=== PATIENT | female | born 1950 | race Caucasian/White ===

== ENCOUNTER 2020-01-27 00:33 | Emergency (ER) | payer MEDICARE, SELFPAY ==
[2020-01-27 00:41] VITALS: BP 198/110; PULSE 91; RESP 16; TEMP 37.1; O2SAT 99; BMI 29.2
--- NOTE | 2020-01-27 00:50 | W.ED.ALLEREA ---
HPI - Allergic Reaction General: Chief complaint: Allergic Reaction Stated complaint: tongue swelling Time Seen by Provider: 01/27/20 00:47 Source: patient Mode of arrival: ambulatory Limitations: no limitations History of Present Illness: HPI narrative: Skye is a nice 69-year-old female who comes in with a complaint of tongue swelling. Patient stated it started tonight after she took her evening dose of insulin. Patient is on COLLINS inhibitor, lisinopril which she has been on for quite some time and takes it every morning. Patient denies any skin rashes, shortness of breath or hives. Patient is able to talk, swallow her own secretions and speak. She denies any swelling in the posterior part of her throat only to the anterior portion of her tongue at this time. Associated symptoms: Deny abdominal pain, dizziness, facial swelling, hoarseness, nausea, tongue swelling or vomiting Review of Systems Const: Denies: fever(s), chills, body aches, fatigue, malaise or diaphoresis Eyes: Denies: change in vision, blurry vision, photophobia, eye discomfort, eye discharge, eye redness or yellow eyes ENMT: Reports: other (Tongue swelling, see HPI); Denies: throat pain, odynophagia, hoarseness, swelling of lips/tongue, ear or mastoid pain, ear discharge, change in hearing or nasal discharge Card: Denies: chest pain, palpitations, irregular heart rhythm, edema, lightheadedness, syncope, pre-syncope, dyspnea on exertion or orthopnea Resp: Denies: dyspnea, productive cough, non-productive cough, wheezing, hemoptysis or chest congestion GI: Denies: abdominal pain, nausea, vomiting, hematemesis, coffee ground emesis, heartburn, diarrhea, constipation, GI cramping, hematochezia or melena : Denies: flank pain, dysuria, urinary frequency, urinary urgency or hematuria Musc: Denies: neck pain, back pain, extremity pain, extremity swelling, joint pain, joint swelling, joint redness, joint warmth or joint stiffness Skin/Breast: Denies: rash, pruritus, erythema, skin pain or skin tenderness Neuro: Denies: headache(s), numbness in extremities, weakness in extremities, sensory changes, lack of coordination, difficulty walking, dizziness, vertigo, confusion, Slurred speech present or seizure-like activity Jair/Lymph: Denies: easy bruising, easy bleeding, petechiae, purpura or enlarged lymph nodes All/Imm: Denies: urticaria, throat swelling, tongue swelling, facial swelling or acute wheezing PFSH ED PFSH: Medical History Diabetes Hypertension Physical Exam Const: COMMON NORMALS: no acute distress, patient oriented x3, no limitations and alert GENERAL APPEARANCE: cooperative HENMT: COMMON NORMALS: normocephalic, atraumatic, external ears normal, EAC's normal and Normal external nose present HEAD & SCALP: normal to inspection, normocephalic and atraumatic FACE & SINUS: normal facial exam and face symmetric NOSE: Normal external nose present and Normal nares present EXTERNAL EAR: Yes external ears normal EXTERNAL AUDITORY CANAL: EAC's normal MOUTH: Normal oral and palatal mucosa present, lip normal and other (Tongue with swelling but overall patient has Mallampati class II visualizat) Eye: COMMON NORMALS: Equal, round and reactive pupils present and conjunctivae normal GENERAL EYE: appearance normal, both eyes and all related structures ALIGNMENT: Yes alignment normal PERIORBITAL: periorbital findings normal EYELID: eyelids normal CONJUNCTIVA: Yes conjunctivae normal SCLERA: sclerae normal PUPIL: Yes Equal, round and reactive pupils present Neck/C-Spine: COMMON NORMALS: full ROM, no lymphadenopathy, supple, no meningeal signs and no JVD GENERAL: Yes normal visual inspection and Yes trachea midline Chest: COMMONS NORMALS: normal inspection of the chest and normal palpation of entire chest wall Resp: COMMON NORMALS: normal respiratory effort, No retractions, No use of accessory muscles and clear to auscultation bilaterally EFFORT & INSPECTION: Yes able to speak in complete sentences and Yes symmetric chest movement AUSCULTATION: clear to auscultation bilaterally, no crackles, no rales, no rhonchi and no wheezes Cardio: COMMON NORMALS: no JVD, regular rate, regular rhythm, S1 normal heart sound present and S2 normal heart sound present RATE: regular rate RHYTHM: regular rhythm HEART SOUNDS: S1 normal heart sound present, S2 normal heart sound present, no click, no gallops, no murmurs and no rubs GI: COMMON NORMALS: Soft to palpation and No hepatosplenomegaly present PALPATION: Yes Soft to palpation, No Tenderness to palpation present (GI), No Guarding due to palpation present (GI), No Rigid due to palpation, Yes No hepatosplenomegaly present, No Hernia present, No Palpable mass present and No Pulsatile mass present : COMMON NORMALS: Yes no CVA tenderness BLADDER/KIDNEY EXAM: Yes no CVA tenderness EXTERNAL FEMALE EXAM: No Hernia present Back/Pelvis: COMMON NORMALS: no CVA tenderness, thoracic and lumbar spine normal to inspection, no thoracic nor lumbar tenderness and thoraco-lumbar ROM normal Extremity: COMMON NORMALS: normal to inspection, full ROM, capillary refill normal, no joint enlargement, no clubbing, cyanosis or edema and no calf tenderness Neuro: COMMON NORMALS: patient oriented x3, CN's II-XII intact bilaterally, moves all extremities, no focal motor deficits and no sensory deficits noted SENSORIUM/ORIENTATION: Yes alert MENINGEAL SIGNS: Yes no meningeal signs SPEECH: speech normal Psych: COMMON NORMALS: mental status grossly normal, Normal thought process present, cooperative, normal affect, speech normal and activity/motor behavior normal SPEECH: Yes normal speech THOUGHT PROCESS: Normal thought process present Skin: COMMON NORMALS: no rashes or lesions noted, turgor normal, no jaundice, no petechiae and no mottling GENERAL SKIN EXAM: no rashes or lesions noted and turgor normal Course ED course: 1253 -this time the patient has a Mallampati class II exam to her throat. The swelling is located to the anterior portion of the tongue only. Patient can speak without difficulty and swallow her own secretions. She denies any difficulty swallowing or breathing. This is likely angioedema secondary to the lisinopril. I have informed her if she gets worse at all she needs to tell us but we will proceed with conservative therapy at this time of Benadryl, Pepcid and Solu-Medrol. If she gets worse at all we may have to proceed with prophylactic intubation to protect her airway. 0132 -patient reports feeling slightly better after her administration of medications. 0205 -patient reports continuing to feel slightly better. She feels no worse. Vital signs are stable. 0253 -patient feels improved. There is definite visual improvement with her tongue swelling. It is asymmetric at this time more on the left than right and overall improved. 0336 -patient feels as though her tongue swelling has completely resolved. On exam her tongue is symmetrical without any evidence of swelling. Vital Signs: Vital signs: Vital Signs Temperature 98.8 F 01/27/20 00:41 Pulse Rate 83 01/27/20 03:15 Respiratory Rate 14 01/27/20 03:15 Blood Pressure 169/102 01/27/20 04:22 Pulse Oximetry 98 01/27/20 04:22 MDM - Allergic Reaction MDM Narrative: Medical decision making narrative: 0425 -the patient symptoms have completely resolved. She would like to go home at this time. I have instructed her to stop her lisinopril and follow-up with her doctor in regards to a new blood pressure medication. I will put the patient on steroids for the next 5 days and Benadryl and Pepcid for the next 2 days. Patient agrees to return should her symptoms return at all but at this time she states she is completely resolved. Her exam appears normal at this time. Discharge Plan Discharge Patient Disposition: Home Clinical Impression: Angioedema Qualifiers: Encounter type: initial encounter Qualified Code(s): T78.3XXA - Angioneurotic edema, initial encounter Condition: Stable Prescriptions: New prednisone 10 mg tablets,dose pack See Rx Instructions .ROUTE .COMPLEX Qty: 21 RF: 0 Discharge Orders: Discharge Order (Routine); Ordered 01/27/20 Ordered By: Darlene Arroyo Referrals: Davin Santos [Primary Care Provider] - 1-3 days Discharge Diet: Usual diet Discharge Activity: Increase activity as tolerated Patient Instructions: Angioedema (ED) Activity Restrictions/Additional Instructions: Please return to the ER immediately for any of the signs or symptoms listed on your discharge instruction sheets, worsening/changing of your symptoms, you are not getting better as quickly as expected, or for ANY other cause or concerns. Take your medications as I have directed. Take Benadryl 25 to 50 mg every 6 hours for the next 2 days and Pepcid 40 mg every 12 hours for the next 2 days. Return to the ER if you feel as though your tongue begins to swell again or you have any shortness of breath, throat tightening or any other concerns. Coding Level of Care Code ED Quality System Manager for Michael Fwd Exam Comprehensive
[2020-01-27 00:51] VITALS: BP 184/131; PULSE 88; RESP 16; O2SAT 98
[2020-01-27] MEDS: famotidine 20 mg/2 mL INJ 40 MG IVP (01:13)
[2020-01-27] MEDS: diphenhydrAMINE 50 mg/mL SDV 1mL IVP (01:13)
[2020-01-27 01:37] VITALS: BP 160/91; O2SAT 99
[2020-01-27 03:15] VITALS: BP 153/87; PULSE 83; RESP 14; O2SAT 99
--- NOTE | 2020-01-27 03:21 | PC.NURSE ---
PATIENT GIVEN ICE CHIPS BY NURSE PER HCP APPROVAL.
[2020-01-27 04:22] VITALS: BP 169/102; O2SAT 98
[2020-01-27] MEDS: predniSONE 20 mg Tablet 60 MG PO (05:49)
[2020-01-27 05:58] VITALS: BP 178/99; PULSE 68; RESP 16; O2SAT 100
== END 2020-01-27 05:59 | disposition home or self-care (01) ==
PROVIDERS: Emergency Provider Emergency Medicine; PCP Family Medicine
DX: T78.3XXA Angioneurotic edema, initial encounter (principal); T46.4X5A Adverse effect of angiotensin-converting-enzyme inhibitors, initial encounter; I10 Essential (primary) hypertension; E11.9 Type 2 diabetes mellitus without complications; Z79.4 Long term (current) use of insulin; X58.XXXA Exposure to other specified factors, initial encounter
CPT/HCPCS: 12345; 96374; 96375; 99283; J1200; J2930; J3490; J7512

== ENCOUNTER 2020-09-10 00:48 | Emergency (ER) | payer MEDICARE, SELFPAY ==
[2020-09-10 00:59] VITALS: BP 161/88; PULSE 69; RESP 18; O2SAT 99; BMI 26.9
--- NOTE | 2020-09-10 01:11 | ED_ITS ---
HPI - Weakness General: Chief complaint: Nausea/Vomiting/Diarrhea Stated complaint: N/V,D,, weak Time Seen by Provider: 09/10/20 00:59 Source: patient Mode of arrival: ambulatory Limitations: no limitations History of Present Illness: HPI Narrative: 69-year-old female states she has had nausea and vomiting over the last day and is felt weak and felt drunk tonight. She is a diabetic and takes insulin. Her blood sugar in triage was 50. She states she has not been eating as much. She denies abdominal pain. Denies any fever. Denies any worsening or improving factors. Associated symptoms: Reports nausea and vomiting; Denies chest pain, chills, dysuria, easy bruising or fever(s) Review of Systems Const: Denies: fever(s), chills, body aches or change in appetite Eyes: Denies: blurry vision or eye discomfort ENMT: Denies: throat pain or dental pain Card: Denies: chest pain Resp: Denies: dyspnea GI: Reports: nausea and vomiting : Denies: dysuria Musc: Denies: neck pain or back pain Skin/Breast: Denies: rash Neuro: Reports: weakness in extremities Psych: Denies: depression Jair/Lymph: Denies: easy bruising All/Imm: Denies: urticaria PFSH ED PFSH: Medical History Diabetes Hypertension Physical Exam Const: COMMON NORMALS: no acute distress, patient oriented x3 and healthy appearing HENMT: COMMON NORMALS: normocephalic and atraumatic HEAD & SCALP: normocephalic and atraumatic Eye: COMMON NORMALS: Equal, round and reactive pupils present and EOMs intact bilaterally PUPIL: Yes Equal, round and reactive pupils present Neck/C-Spine: COMMON NORMALS: full ROM and supple Chest: COMMONS NORMALS: normal inspection of the chest and normal palpation of entire chest wall Resp: COMMON NORMALS: normal respiratory effort, No retractions, No use of accessory muscles and clear to auscultation bilaterally AUSCULTATION: clear to auscultation bilaterally Cardio: COMMON NORMALS: regular rate, regular rhythm and No murmurs present (Cardio) RATE: regular rate RHYTHM: regular rhythm GI: COMMON NORMALS: Normal to inspection, nondistended, normoactive bowel sounds present, Soft to palpation, non-tender and no masses PALPATION: Yes Soft to palpation Extremity: COMMON NORMALS: normal to inspection and full ROM Neuro: COMMON NORMALS: patient oriented x3, moves all extremities and no focal motor deficits Psych: COMMON NORMALS: mental status grossly normal, Normal thought process present and cooperative THOUGHT PROCESS: Normal thought process present Skin: COMMON NORMALS: no rashes or lesions noted and no wounds GENERAL SKIN EXAM: no rashes or lesions noted Course Vital Signs: Vital signs: Vital Signs Pulse Rate 72 09/10/20 03:14 Respiratory Rate 16 09/10/20 03:14 Blood Pressure 161/88 09/10/20 00:59 Pulse Oximetry 99 09/10/20 00:59 MDM - Weakness MDM Narrative: Medical decision making narrative: Patient presents here with weakness likely from hypoglycemia and an acute urinary tract infection. She feels much improved here after her D50. She has been able to tolerate p.o. here with no problems. We will prescribe her Zofran for home and Keflex. She is to follow-up with PCP and return if worsening. Lab Data: Labs: Lab Results 09/10/20 09/10/20 09/10/20 Range/Units 01:04 01:17 01:17 WBC 11.1 H (4.0-10.0) 10^3/ uL RBC 3.86 L (4.1-5.3) 10^6/u L Hgb 12.3 (11.5-15.3) g/dL Hct 35.8 L (37.0-47.0) % MCV 92.7 (81-99) fL MCH 31.9 (28.0-34.0) pg MCHC 34.4 (30.0-36.0) g/dL RDW 12.4 (12.1-15.1) % Plt Count 310 (130-400) 10^3/c mm MPV 10.6 H (7.4-10.4) fL Neut % (Auto) 83.0 % Lymph % (Auto) 8.3 % Sawyer % (Auto) 7.6 % Eos % (Auto) 0.2 % Baso % (Auto) 0.5 % Neut # (Auto) 9.22 H (1.8-7.7) 10^3/u L Lymph # (Auto) 0.9 (0.8-4.8) 10^3/u L Sawyer # (Auto) 0.8 (0.2-0.9) 10^3/u L Eos # (Auto) 0.0 (0.0-0.8) 10^3/u L Baso # (Auto) 0.1 (0.0-0.1) 10^3/u L Nucleated RBC % (a uto) 0 % Nucleated RBCs # 0.0 /100WBC Sodium 134 L (136-145) mmol/L Potassium 3.4 L (3.5-5.1) mmol/L Chloride 97 L (98-107) mmol/L Carbon Dioxide 22 (22-29) mmol/L Anion Gap 18.4 (5-19) BUN 18 (8-23) mg/dL Creatinine 1.4 H (0.5-0.9) mg/dL GFR Calculation 37.2 L (90-130) mL/min Glucose 49 L (65-115) mg/dL POC Glucose 52 L (70-110) mg/dL Calculated Osmolal ity 277 L (285-295) mOsm/k g Calcium 8.8 (8.5-10.5) mg/dL Total Bilirubin 0.3 (0.15-1.2) mg/dL AST 26 (0-32) U/L ALT 13 (0-33) U/L Alkaline Phosphata se 82 (35-105) IU/L Total Protein 7.5 (6.6-8.7) g/dL Albumin 3.9 (3.5-5.2) g/dL Globulin 3.6 (1.3-4.6) g/dL Lipase 41 (13-60) U/L Urine Color (Yellow) Urine Appearance (CLEAR) Urine pH (5-7) Ur Specific Gravit y (1.005-1.030) Urine Protein (Negative) Urine Glucose (UA) (Normal) Urine Ketones (Negative) Urine Blood (Negative) Urine Nitrate (Negative) Urine Bilirubin (Negative) Urine Urobilinogen (Negative) mg/dL Ur Leukocyte Alyson ase (Negative) Urine RBC (0-2) /hpf Urine WBC (0-5) /hpf Ur Squamous Epith Cells (0-5) /hpf Amorphous Sediment Urine Bacteria (NONE) /hpf 09/10/20 09/10/20 09/10/20 Range/Units 02:05 02:46 03:31 WBC (4.0-10.0) 10^3/ uL RBC (4.1-5.3) 10^6/u L Hgb (11.5-15.3) g/dL Hct (37.0-47.0) % MCV (81-99) fL MCH (28.0-34.0) pg MCHC (30.0-36.0) g/dL RDW (12.1-15.1) % Plt Count (130-400) 10^3/c mm MPV (7.4-10.4) fL Neut % (Auto) % Lymph % (Auto) % Sawyer % (Auto) % Eos % (Auto) % Baso % (Auto) % Neut # (Auto) (1.8-7.7) 10^3/u L Lymph # (Auto) (0.8-4.8) 10^3/u L Sawyer # (Auto) (0.2-0.9) 10^3/u L Eos # (Auto) (0.0-0.8) 10^3/u L Baso # (Auto) (0.0-0.1) 10^3/u L Nucleated RBC % (a uto) % Nucleated RBCs # /100WBC Sodium (136-145) mmol/L Potassium (3.5-5.1) mmol/L Chloride (98-107) mmol/L Carbon Dioxide (22-29) mmol/L Anion Gap (5-19) BUN (8-23) mg/dL Creatinine (0.5-0.9) mg/dL GFR Calculation (90-130) mL/min Glucose (65-115) mg/dL POC Glucose 172 H 153 H (70-110) mg/dL Calculated Osmolal ity (285-295) mOsm/k g Calcium (8.5-10.5) mg/dL Total Bilirubin (0.15-1.2) mg/dL AST (0-32) U/L ALT (0-33) U/L Alkaline Phosphata se (35-105) IU/L Total Protein (6.6-8.7) g/dL Albumin (3.5-5.2) g/dL Globulin (1.3-4.6) g/dL Lipase (13-60) U/L Urine Color Yellow (Yellow) Urine Appearance Clear (CLEAR) Urine pH 5 (5-7) Ur Specific Gravit y 1.005 (1.005-1.030) Urine Protein 1+ H (Negative) Urine Glucose (UA) 2+ (Normal) Urine Ketones Negative (Negative) Urine Blood 2+ H (Negative) Urine Nitrate Negative (Negative) Urine Bilirubin Neg (Negative) Urine Urobilinogen Norm (Negative) mg/dL Ur Leukocyte Alyson ase Negative (Negative) Urine RBC 0-4 H (0-2) /hpf Urine WBC 0-4 H (0-5) /hpf Ur Squamous Epith Cells 0-4 H (0-5) /hpf Amorphous Sediment Not Reportable Urine Bacteria 3+ H (NONE) /hpf Discharge Plan Discharge Patient Disposition: Home Clinical Impression: Hypoglycemia, Acute cystitis Condition: Stable Prescriptions: New cephalexin 500 mg capsule 500 mg PO TID 7 Days Qty: 21 RF: 0 ondansetron 4 mg tablet,disintegrating 4 mg PO Q6H PRN (Reason: nausea and vomiting) Qty: 14 RF: 0 No Action prednisone 10 mg tablets,dose pack See Rx Instructions .ROUTE .COMPLEX Qty: 21 RF: 0 Discharge Orders: Discharge ED (Routine); Ordered 09/10/20 Ordered By: Rei Card Referrals: Davin Santos [Primary Care Provider] - 1-3 days Discharge Diet: Advance as tolerated Discharge Activity: Resume usual activity Patient Instructions: Urinary Tract Infection in Women (ED), Diabetic Hypoglycemia (ED) Coding Level of Care Code ED Md Allergy Immunology for [place] Fwd Exam Comprehensive
[2020-09-10] MEDS: dextrose 50% syringe 50 mL IVP (01:17)
[2020-09-10] MEDS: ondansetron 2 mg/ML SDV 2 mL 4 MG IVP (01:18)
[2020-09-10 01:24] LABS: Glucose Point of Care 52 mg/dL (70-110)
[2020-09-10 01:29] LABS: Basophils # 0.1 10^3/uL (0.0-0.1); Basophils % 0.5 %; Eosinophils % 0.2 %; Hematocrit 35.8 % (37.0-47.0); Hemoglobin 12.3 g/dL (11.5-15.3); Lymphocytes # 0.9 10^3/uL (0.8-4.8); Lymphocytes % 8.3 %; Mean Corpuscular HGB Conc 34.4 g/dL (30.0-36.0); Mean Corpuscular Hemoglobin 31.9 pg (28.0-34.0); Mean Corpuscular Volume 92.7 fL (81-99); Mean Platelet Volume 10.6 fL (7.4-10.4); Monocytes # 0.8 10^3/uL (0.2-0.9); Monocytes % 7.6 %; Neutrophils # 9.22 10^3/uL (1.8-7.7); Nucleated Red Blood Cells % 0 %; Platelet Count 310 10^3/cmm (130-400); Red Blood Count 3.86 10^6/uL (4.1-5.3); Red Cell Distribution Width 12.4 % (12.1-15.1); White Blood Count 11.1 10^3/uL (4.0-10.0)
[2020-09-10 01:41] LABS: Alanine Aminotransferase 13 U/L (0-33); Albumin Level 3.9 g/dL (3.5-5.2); Alkaline Phosphatase 82 IU/L (35-105); Anion Gap 18.4 (5-19); Aspartate Amino Transferase 26 U/L (0-32); Blood Urea Nitrogen 18 mg/dL (8-23); Calcium 8.8 mg/dL (8.5-10.5); Carbon Dioxide 22 mmol/L (22-29); Chloride 97 mmol/L (98-107); Globulin 3.6 g/dL (1.3-4.6); Glomerular Filtration Rate 37.2 mL/min (90-130); Glucose 49 mg/dL (65-115); Lipase 41 U/L (13-60); Osmolality Calculated 277 mOsm/kg (285-295); Potassium 3.4 mmol/L (3.5-5.1); Sodium 134 mmol/L (136-145); Total Bilirubin 0.3 mg/dL (0.15-1.2); Total Protein 7.5 g/dL (6.6-8.7)
[2020-09-10 02:09] LABS: Glucose Point of Care 172 mg/dL (70-110)
[2020-09-10 03:12] LABS: Add Urine Culture? Yes; Add Urine Microscopic? YES; Bacteria Urine 3+ /hpf; Bilirubin Urine Neg (Negative); Blood Urine 2+ (Negative); Glucose Urine UA 2+ (Normal); Ketones Urine Negative (Negative); Leukocyte Esterase Urine Negative (Negative); Nitrate Urine Negative (Negative); Protein Urine 1+ (Negative); RBC Urine 0-4 /hpf (0-2); Specific Gravity, Urine 1.005 (1.005-1.030); Squamous Epithelial Cell Urine 0-4 /hpf (0-5); Urine Appearance Clear (CLEAR); Urine Color Yellow (Yellow); Urobilinogen Urine Norm (Negative); WBC Urine 0-4 /hpf (0-5); pH Urine 5 (5-7)
[2020-09-10 03:14] VITALS: PULSE 72; RESP 16
[2020-09-10 03:35] LABS: Glucose Point of Care 153 mg/dL (70-110)
[2020-09-10] MEDS: cephALEXin 500 mg Capsule PO (04:01)
[2020-09-10 04:09] VITALS: BP 150/74; PULSE 71; RESP 16; TEMP 36.5; O2SAT 97
== END 2020-09-10 04:11 | disposition home or self-care (01) ==
PROVIDERS: Emergency Provider Emergency Medicine; PCP Family Medicine
DX: N30.00 Acute cystitis without hematuria (principal); E11.649 Type 2 diabetes mellitus with hypoglycemia without coma; I10 Essential (primary) hypertension
CPT/HCPCS: 36416; 80053; 81001; 82962; 83690; 85025; 87077; 87086; 87186; 96374; 96375; 99284; J2405

== ENCOUNTER 2022-06-01 14:34 | Inpatient (IN) | payer MEDICAID, SELFPAY ==
[2022-06-01] VITALS (19 sets, daily range): BP systolic 110–163; BP diastolic 64–101; PULSE 65–108; RESP 17–28; TEMP 36.8; O2SAT 96–100; BMI 4161.8
--- NOTE | 2022-06-01 14:42 | ECG_ITS ---
[facility] Test Date: 2022-06-01 Pat Name: Skye Oreilly Department: Room: Gender: Female [employer]: : 1950 Requested By: Chi Leon Order Number: [id number] Reading MD: AISHA HERNANDEZ Measurements Intervals [place] Rate: 75 P: 32 IN: 145 QRS: 23 QRSD: 92 T: 121 QT: 387 QTc: 432 Interpretive Statements SINUS RHYTHM WITH OCCASIONAL VENTRICULAR PREMATURE COMPLEXES MARKED ST ELEVATION, CONSIDER INFERIOR INJURY [MARKED ST ELEVATION W/O NORMALLY INFLECTED T-WAVE IN II/aVF] ACUTE NV No previous ECG available for comparison Electronically Signed On 06-03-2022 23:39:19 CDT by AISHA HERNANDEZ [id number]
--- NOTE | 2022-06-01 14:52 | XACV_ITS ---
Exam Room: [place] [address] Ht: 152 cm Wt: 67 kg BSA: 1.71 m2 Gender: Female : 1950 Exam Priority: Routine Procedure(s): Procedure Description: Diagnostic procedure Procedure Description: PCI procedure Procedure Description: Drug Eluting Coronary Stent Procedure Description: PTCA Procedure Description: Miscellaneous Procedure Description: ACT Procedure Description: Coronary Angiography LILY, [place]; Diagnostic Cath Status: Emergency Diagnostic Findings * 1. Left main has luminal irregularity2. LAD has luminal irregularities with mid 50% stenosis, diagonal 1 has proximal 80 to 90% stenosis small caliber vessel with 3. Left circumflex has luminal irregularities it is nondominant vessel with4. RCA has 100% occlusion in the mid segment there is a DIANELYS 0 flow. PCI Status: Emergency PCI Indication: STEMI - Immediate PCI for STEMI Interventional Findings * PCI to mid RCA: Using run-through wire we were able to cross the lesion, lesion was predilated with 2.5 x 12 mm AB trek balloon followed by deployment of Argelia 3.0 x 30 mm drug-eluting stent it was then postdilated with 3.5 x 12 mm noncompliant balloon at high pressure. Excellent angiographic result with DIANELYS-3 flow was achieved.. Recommendations * Continue dual antiplatelet therapy for at least 1 yearLifestyle modificationContinue statinGuideline medical therapy for ST elevation [place]. Interventional RX Recommendation: PCI w/o planned CABG Diagnostic RX Recommendation: PCI w/o planned CABG Pressures Phase:Rest AO : 108 / 79 ( 94 ) @ 4:35:00 PM 119 / 71 ( 94 ) @ 4:41:00 PM 110 / 65 ( 80 ) @ 4:51:00 PM 122 / 73 ( 96 ) @ 4:53:00 PM 99 / 54 ( 73 ) @ 4:54:00 PM 74 / 47 ( 59 ) @ 4:55:00 PM 115 / 70 ( 92 ) @ 4:55:00 PM Clinical Evaluation EBL: 5mL-10mL Procedural Details Admit Source: Emergency department. Pre-Procedure Time Out. Identified patient by full name and date of as verbalized by the patient/guarantor. Does the consent match the physician's order: N/A Emergent; Informed Consent not obtained due to time critical life threat. Accurate & Complete Informed Consent: N/A Emergent; Informed Consent not obtained due to time critical life threat. Inpatient/Outpatient History & Physical on Chart: N/A Emergent; Informed Consent not obtained due to time critical life threat. If H&P is completed, is and addenduem needed: N/A Emergent; Informed Consent not obtained due to time critical life threat; If yes, is the addendum complete: N/A Emergent; Informed Consent not obtained due to time critical life threat. Visualize and Verify Site with Patient/Guarantor: N/A. Relevant Radiology Images available: N/A. Pre-op teaching completed and patient verbalized understanding. The risks, benefits, and alternatives of sedation and/or procedure were discussed by physician. The patient agrees to continue. Procedure started. [facility] Clinical Fraility Score: 3: Managing Well. Fulfillment Mail Clerk Indications: New Onset Angina. Chest Pain Symptom Assessment: Typical Angina Symptoms. Current diagnosis: STEMI. Correct patient, site and procedure confirmed by cath team. PERRLA. Strong, equal hand customer management specialist bilaterally. Lungs clear x 5 lobes. IV Site on Arrival: 18 gauge in the left anticubital. IV Fluids: 0.9% NaCl at KVO. 0 mL infused prior to woven label designer. Pre Procedural Pulses: right radial was 1+. Pre Procedural Pulses: bilateral dorsalis pedis was 1+. Oxygen started at 2liters/min via nasal canula. right groin was prepped with chloroprep then draped in the usual sterile fashion. right radial was prepped with chloroprep then draped in the usual sterile fashion. Physician notified. Baseline sample Acquired. HR: 88 BPM. Physician arrived. Physician scrubbed in. Immediate Pre-Procedure Time Out. Correct Patient: Yes; Correct Procedure: Yes; Correct Site: Yes; Correct Patient Position: Yes; Correct Supplies: Yes; Dried Flammable Prep: Yes; Blood Products Available: N/A;. Lidocaine 1% infiltrated to the right radial. Arterial access obtained. A 5 grenadian TIG catheter in over wire. Multiple views taken of left coronary artery. Catheter redirected to the RCA. Multiple views taken of right coronary artery. Catheter removed over the exchange wire. 6 grenadian JR 4 guide catheter was inserted over the wire. Runthrough guidewire was advanced through the guide catheter to lesion in the prox RCA. Balloon inserted to lesion in the mid RCA. Inflation number : 1 A AB TREK 2.50X12 RX BALLOON was prepped and advanced across the Mid RCA , then inflated to 14 BRIT for 0:11 seconds. Inflation number: 2 The AB TREK 2.50X12 RX BALLOON was reinflated across the Mid RCA, to 14 BRIT for 0:07 seconds. Results checked. Balloon out. Stent inserted to lesion in the mid RCA. Inflation Number : 3 A MDT R ARGELIA 3.0X30 TREE -Lot Number# [id number] Exp 07/23/24 was prepped and advanced across the Mid RCA. The stent was deployed at 14 BRIT for 0:30 seconds. Results checked. Stent balloon out over wire. Inflation number : 4 A MDT NC EUPHORA RX 3.94A87PM BALLOON was prepped and advanced across the Mid RCA , then inflated to 14 BRIT for 0:23 seconds. Inflation number: 5 The MDT NC EUPHORA RX [id number] BALLOON was reinflated across the Mid RCA, to 10 BRIT for 0:06 seconds. Balloon inserted to lesion in the mid RCA. Inflation number: 6 The MDT NC EUPHORA RX 3.05E99UG BALLOON was reinflated across the Mid RCA, to 12 BRIT for 0:05 seconds. Inflation number: 7 The MDT NC EUPHORA RX 3.30S18CA BALLOON was reinflated across the Mid RCA, to 18 BRIT for 0:24 seconds. Inflation number: 8 The MDT ABNER EUPHORA RX 3.58S16YL BALLOON was reinflated across the Mid RCA, to 12 BRIT for 0:11 seconds. Balloon out. Wire out. Results checked. Ap Pads applied to patient chest. ACT drawn. Results 226 seconds. Therapeutic limits - pre-heparin administration 90-150 seconds and monitoring heparin during a vascular procedure >250 seconds. Guide catheter out. A TR Band was successful obtaining hemostatsis at the Right Radial artery insertion site. Post Procedure: Pulses reassessed and unchanged. PERRLA. Strong, equal hand customer management specialist bilaterally. No VTE prophylaxis required. Medication's Wasted: Other = Versed 1 mg. Medication's Wasted: Nitro = 49.8 mg. Medication's Wasted: Heparin = 1000u. Medication's Wasted: Lidocaine 1% = 1 mL. Total IV fluids: 85 mL. PCI Indication: STEMI. Post-op diagnosis: STEMI, RCA Occlusion. Complications: none. Estimated blood loss: 5mL-10mL. Responsiveness - Normal response to verbal stimuli; alert and oriented, PERRLA. Airway - Unaffected, no intervention required; spontaneous ventilation. Circulation: W/N/L, pulses unchanged. Nausea/Vomiting: No. Procedure completed. Patient transferred by wheelchair to ICU. Vital chart was stopped. Access Site Site: Right Radial artery Sheath Size: 6 Fr Hemostasis Method: TR Band Hemostasis Success: Successful Procedure Medications Start: 3:28 PM Stop: 3:28 PM Medication: Versed Amount: 1 mg Route: I.V. Start: 3:29 PM Stop: 3:29 PM Medication: Fentanyl Amount: 25 mcg Route: I.V. Start: 3:30 PM Stop: 3:30 PM Medication: Nitrogylcerin Amount: 200 mcg Route: I.A. Start: 3:37 PM Stop: 3:37 PM Medication: Heparin Amount: 3000 units Route: I.V. Start: 3:42 PM Stop: 3:42 PM Medication: Aggrastat 12.5 mg/250 mL Amount: 34 ml Route: I.V. bolus Start: 3:42 PM Stop: 3:42 PM Medication: Aggrastat 12.5 mg/250 mL Amount: 12.2 ml/hr Route: I.V. bolus Start: 3:59 PM Stop: 3:59 PM Medication: Heparin Amount: 2000 units Route: I.V. I, the attending physician, have reviewed and verified all procedure medications. Yes, all medications given per verbal order Report Signatures Finalized by Pilo Nuñez MD on 06/04/2022 11:52 PM
--- NOTE | 2022-06-01 14:55 | ED_ITS ---
HPI - Chest Pain General: Chief Complaint: Chest Pain Stated Complaint: n/v/chest pain Time Seen by Provider: 06/01/22 14:54 History of Present Illness: Patient presents to the ER with complaints of nausea vomiting and chest pain. States that the chest pain started sometime this morning and the nausea vomiting started around 1:00. Patient states pain is a 10 out of 10. MD complaint: chest pain Pertinent past history: other (Insulin-dependent diabetes,) Onset (ago): day(s) (Sometime this morning) Prior episodes: No Onset: during rest Pain location: substernal Pain radiation: none Pain scale (0-10): 10 Quality: tightness, aching and heaviness Relieving factors: nothing Exacerbating factors: nothing Associated symptoms: Reports nausea and vomiting Treatment prior to arrival: none Review of Systems General: Reports: ROS unobtainable due to medical condition GI: Reports: nausea and vomiting [facility] PFSH: Medical History Diabetes Hypertension Physical Exam Const: COMMON NORMALS: patient oriented x3 and alert GENERAL APPEARANCE: in distress, anxious and ill appearing HENMT: COMMON NORMALS: normocephalic, atraumatic, hearing grossly normal bilaterally and moist oral mucous membranes HEAD & SCALP: normocephalic and atraumatic Neck/C-Spine: COMMON NORMALS: full ROM, no lymphadenopathy, supple, no JVD and Thyroid normal THYROID: Thyroid normal Chest: COMMONS NORMALS: normal inspection of the chest and normal palpation of entire chest wall Resp: COMMON NORMALS: normal respiratory effort, No retractions, No use of accessory muscles and clear to auscultation bilaterally AUSCULTATION: clear to auscultation bilaterally Cardio: COMMON NORMALS: no JVD, regular rate, regular rhythm, S1 normal heart sound present and S2 normal heart sound present RATE: regular rate RHYTHM: regular rhythm HEART SOUNDS: S1 normal heart sound present and S2 normal heart sound present GI: COMMON NORMALS: Normal to inspection, nondistended, normoactive bowel sounds present, Soft to palpation, non-tender, No hepatosplenomegaly present and no masses PALPATION: Yes Soft to palpation and Yes No hepatosplenomegaly present Extremity: COMMON NORMALS: normal to inspection Neuro: COMMON NORMALS: patient oriented x3, CN's II-XII intact bilaterally, moves all extremities, no focal motor deficits and no sensory deficits noted SENSORIUM/ORIENTATION: Yes alert Course Vital Signs: Vital signs: Vital Signs Pulse Rate 65 06/01/22 15:05 Respiratory Rate 28 H 06/01/22 15:05 Blood Pressure 160/97 06/01/22 15:05 Pulse Oximetry 98 06/01/22 15:05 Oxygen Delivery Me thod 06/01/22 15:05 MDM - Chest Pain Medical Decision Making Patient presents to the ER with complaints of substernal chest pain 10 out of 10 in obvious distress. EKG was obtained in triage which showed marked ST elevation in leads II and aVF. Code STEMI was called, Dr. Van was consulted, patient was taken to the Orthodontic Technician. Dr. Bridges was consulted and she excepted for admission Differential Diagnosis Likely acute myocardial infarction; Unlikely acute massive pulmonary embolism, acute respiratory failure, cardiac arrest or sudden cardiac Lab Data 06/01/22 14:50 06/01/22 14:50 Laboratory Results WBC 14.0 10^3/uL (4.0-10.0) H 06/01/22 14:50 RBC 3.88 10^6/uL (4.1-5.3) L 06/01/22 14:50 Hgb 12.2 g/dL (11.5-15.3) 06/01/22 14:50 Hct 37.2 % (37.0-47.0) 06/01/22 14:50 MCV 95.9 fl (81-99) 06/01/22 14:50 MCH 31.4 pg (28.0-34.0) 06/01/22 14:50 MCHC 32.8 g/dL (30.0-36.0) 06/01/22 14:50 RDW 12.3 % (12.1-15.1) 06/01/22 14:50 Plt Count 336 10^3/cmm (130-400) 06/01/22 14:50 MPV 11.3 fL (7.4-10.4) H 06/01/22 14:50 Neut % (Auto) 81.0 % 06/01/22 14:50 Lymph % (Auto) 11.3 % 06/01/22 14:50 [place] % (Auto) 5.9 % 06/01/22 14:50 Eos % (Auto) 1.0 % 06/01/22 14:50 Baso % (Auto) 0.4 % 06/01/22 14:50 Neut # (Auto) 11.30 10^3/uL (1.8-7.7) H 06/01/22 14:50 Lymph # (Auto) 1.6 10^3/uL (0.8-4.8) 06/01/22 14:50 [place] # (Auto) 0.8 10^3/uL (0.2-0.9) 06/01/22 14:50 Eos # (Auto) 0.1 10^3/uL (0.0-0.8) 06/01/22 14:50 Baso # (Auto) 0.1 10^3/uL (0.0-0.1) 06/01/22 14:50 Nucleated RBC % (auto) 0 % 06/01/22 14:50 Nucleated RBCs # 0.0 /100WBC 06/01/22 14:50 PT 12.90 SECONDS (12.1-14.9) 06/01/22 14:50 INR 0.94 (0.8-1.2) 06/01/22 14:50 Sodium 134 mmol/L (136-145) L 06/01/22 14:50 Potassium 4.0 mmol/L (3.5-5.1) 06/01/22 14:50 Chloride 99 mmol/L (98-107) 06/01/22 14:50 Carbon Dioxide 20 mmol/L (22-29) L 06/01/22 14:50 Anion Gap 19.0 (5-19) 06/01/22 14:50 BUN 24 mg/dL (8-23) H 06/01/22 14:50 Creatinine 1.8 mg/dL (0.5-0.9) H 06/01/22 14:50 GFR Calculation Not Reportable 06/01/22 14:50 Glucose 203 mg/dL (65-115) H 06/01/22 14:50 Calculated Osmolality 288 mOsm/kg (285-295) 06/01/22 14:50 Calcium 9.1 mg/dL (8.5-10.5) 06/01/22 14:50 Total Bilirubin 0.2 mg/dL (0.15-1.2) 06/01/22 14:50 AST 21 U/L (0-32) 06/01/22 14:50 ALT 15 U/L (0-33) 06/01/22 14:50 Alkaline Phosphatase 85 U/L (35-105) 06/01/22 14:50 Troponin T Baseline 14 ng/L (0-10) H 06/01/22 14:50 NT-Pro-B Natriuret Pep 289 pg/mL (0-125) H 06/01/22 14:50 Total Protein 7.8 g/dL (6.6-8.7) 06/01/22 14:50 Albumin 4.0 g/dL (3.5-5.2) 06/01/22 14:50 Globulin 3.8 g/dL (1.3-4.6) 06/01/22 14:50 EKG Data EKG 1: I personally reviewed and interpreted this EKG as follows: EKG interpretation date: 06/01/22 EKG interpretation time: 14:42 Prior EKG tracings: not available for review Ischemic changes: acute STEMI Interpretation: EKG showed sinus rhythm with occasional PVCs, marked ST elevation specifically in leads II and aVF, acute MA, ventricular rate of 75 bpm, DE interval of 145, QRS duration of 92, QTc of 415, Discharge Plan Discharge Patient Disposition: Placed in Observation Clinical Impression: ST elevation myocardial infarction (STEMI) Coding Level of Care Code ED Front End Ui Developer for Michael Alvarez
--- NOTE | 2022-06-01 14:57 | XRR_ITS ---
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 TECHNIQUE: Imaging protocol: Radiologic exam of the chest. Views: 1 view. COMPARISON: CR XR chest 2V* [id number] 06/04/2016 1:51 PM FINDINGS: Lungs: Unremarkable. No consolidation. Pleural spaces: Unremarkable. No pleural effusion. No pneumothorax. Heart/Mediastinum: Unremarkable. No cardiomegaly. Bones/joints: Unremarkable. XR/XR chest 1V portable [id number] IMPRESSION: No acute findings.
--- NOTE | 2022-06-01 14:57 | PC.NURSE ---
pt brought back to room from triage, STEMI called. pt reports midsternal chest pain that began at noon, pain radiating to bilateral arms. pt reports intermittent dyspnea.
[2022-06-01] MEDS: aspirin 81 mg Chew Tablet 324 MG PO (14:59)
[2022-06-01] MEDS: clopidogrel 300 mg Tablet 600 MG PO (14:59)
[2022-06-01] MEDS: heparin 5,000 unit/mL INJ 1 mL 4000 UNIT IVP (15:00)
[2022-06-01] MEDS: sodium chloride 0.9% 1,000 ML 999 ML IV (15:03)
[2022-06-01 15:08] LABS: Basophils # 0.1 10^3/uL (0.0-0.1); Basophils % 0.4 %; Eosinophils # 0.1 10^3/uL (0.0-0.8); Hematocrit 37.2 % (37.0-47.0); Hemoglobin 12.2 g/dL (11.5-15.3); Lymphocytes # 1.6 10^3/uL (0.8-4.8); Lymphocytes % 11.3 %; Mean Corpuscular HGB Conc 32.8 g/dL (30.0-36.0); Mean Corpuscular Hemoglobin 31.4 pg (28.0-34.0); Mean Corpuscular Volume 95.9 fl (81-99); Mean Platelet Volume 11.3 fL (7.4-10.4); Monocytes # 0.8 10^3/uL (0.2-0.9); Monocytes % 5.9 %; Nucleated Red Blood Cells % 0 %; Platelet Count 336 10^3/cmm (130-400); Red Blood Count 3.88 10^6/uL (4.1-5.3); Red Cell Distribution Width 12.3 % (12.1-15.1)
[2022-06-01 15:11] LABS: INR 0.94 (0.8-1.2)
[2022-06-01 15:19] LABS: Troponin(5th) Baseline 14 ng/L (0-10)
[2022-06-01 15:27] LABS: Alanine Aminotransferase 15 U/L (0-33); Alkaline Phosphatase 85 U/L (35-105); Aspartate Amino Transferase 21 U/L (0-32); Blood Urea Nitrogen 24 mg/dL (8-23); Calcium 9.1 mg/dL (8.5-10.5); Carbon Dioxide 20 mmol/L (22-29); Chloride 99 mmol/L (98-107); Globulin 3.8 g/dL (1.3-4.6); Glucose 203 mg/dL (65-115); NT Pro B Type Natriuretic Pept 289 pg/mL (0-125); Osmolality Calculated 288 mOsm/kg (285-295); Sodium 134 mmol/L (136-145); Total Bilirubin 0.2 mg/dL (0.15-1.2); Total Protein 7.8 g/dL (6.6-8.7)
--- NOTE | 2022-06-01 15:41 | USCV_ITS ---
Denilson Skye Age: 71 Gender: F : 1950 Exam Date: 06/01/2022 17:19 Ordering Phys: Geneva Bridges MD Technologist: Jo Merritt Exam Location: [facility] Indication: POST STENT PLACEMENT POST STEMI BP: 163 / 91 HR: 76 Rhythm: Sinus Technical Quality: Adequate MEASUREMENTS (Male / Female) Normal Values 2D ECHO LV Diastolic Diameter PLAX 3.7 cm 4.2 - 5.9 / 3.9 - 5.3 cm LV Systolic Diameter PLAX 2.4 cm LV Chamber Size 3.0 cm IVS Diastolic Thickness 0.8 cm 0.6 - 1.0 / 0.6 - 0.9 cm IVS Systolic Thickness 0.9 cm LVPW Diastolic Thickness 1.0 cm 0.6 - 1.0 / 0.6 - 0.9 cm LVPW Systolic Thickness 1.4 cm RV Chamber Size 2.0 cm LVOT Diameter 2.1 cm LV Ejection Fraction 2D Teich 64.1 % LA Diameter 3.5 cm LA Width 3.2 cm LA Height 3.4 cm RA Width 2.8 cm RA Height 3.2 cm Aorta at Sinotubular Diameter 1.8 cm IVC Diameter 1.5 cm M-MODE Aortic Annulus Diameter 2.9 cm LA Ao Ratio MM 1.4 MV E Point Septal Separation 0.7 cm DOPPLER AV Peak Velocity 107.0 cm/s LVOT Peak Velocity 75.0 cm/s AV Area Cont Eq vti 3.6 cm squared AV Area Cont Eq pk 2.4 cm squared MV Area PHT 6.7 cm squared Mitral E to A Ratio 0.7 MV E' Velocity 41.0 cm/s Mitral E to MV E' Ratio 9.7 Mitral E to LV E' Lateral Ratio 8.2 Mitral E to LV E' Septal Ratio 12.1 TR Peak Velocity 198.7 cm/s TR Peak Gradient 15.8 mmHg TR Mean Velocity 146.8 cm/s TR Mean Gradient 9.4 mmHg TR Velocity Time Integral 48.2 cm Right Atrial Pressure 3.0 mmHg Pulmonary Artery Systolic Pressu 18.8 mmHg RV Acceleration Time 0.2 s RV Ejection Time 0.5 s RV AcT/ET 0.4 FINDINGS Left Ventricle Normal left ventricular size, systolic function and wall thickness, with no regional wall motion abnormalities. Left ventricular ejection fraction is estimated at 60 %. Grade I/IV diastolic dysfunction (abnormal relaxation filling pattern), normal to mildly elevated filling pressures. Right Ventricle The right ventricle is normal in size and function. Right Atrium The right atrium is normal in size. Left Atrium The left atrium is normal in size. Mitral Valve Structurally normal mitral valve without significant stenosis or prolapse. There is moderate mitral regurgitation. Aortic Valve Structurally normal aortic valve without significant sclerosis or stenosis. There is no aortic regurgitation. Tricuspid Valve Structurally normal tricuspid valve without significant stenosis or regurgitation. Pulmonary artery systolic pressure is normal. Pulmonic Valve Structurally normal pulmonic valve without significant stenosis. There is no pulmonic regurgitation. Pericardium Normal pericardium without effusion. Aorta Normal ascending aorta dimension. IVC The inferior vena cava appears normal. CONCLUSIONS 1-Normal left ventricular size, systolic function and wall thickness, with no regional wall motion abnormalities. Left ventricular ejection fraction is estimated at 60 %. Grade I/IV diastolic dysfunction (abnormal relaxation filling pattern), normal to mildly elevated filling pressures. 2-Structurally normal mitral valve without significant stenosis or prolapse. There is moderate mitral regurgitation. 3-There is no pericardial effusion. 4-Right atrial pressure is around 5 mm of mercury. Pilo Nuñez MD (Electronically Signed) Final Date: 01 June 2022 19:56 S
--- NOTE | 2022-06-01 16:10 | P.CONIM_ITS ---
Providers/Reason For Consult Consulting Physician/Specialty*: Dr. Leon Reason for Consult*: ST elevation [place] Requesting Physician: Dr. Leon Attending Physician: Pilo Nuñez MD Primary Care Provider: Davin Santos History of Present Illness History of Present Illness Skye Oreilly is a 71 year old female past medical history significant for heart hypertension diabetes mellitus presented with chest pain of 1 hour duration. Patient denies any prior complaint of chest pain, for the last 1 hour it has been become more consistent, patient has been brought her to ER, she was noted to have subtle ST elevation in the inferior leads with reciprocal changes in the anterior and high lateral, she was immediately taken to the Electrical Maintenance Technician noted to have 100% occluded mid RCA treated with single drug-eluting stent postdilated with noncompliant balloon. She was also noted to have 90% small caliber and size diagonal branch thought to be managed medically which is an incidental finding. Medications/Allergies Home Medications Medication Instructions Recorded Confirmed Last Taken Type aspirin 81 mg chewable tablet 81 mg PO DAILY 06/01/22 06/01/22 06/01/22 History insulin glargine 100 unit/mL (3 16 unit SUBCUT BEDTIME 06/01/22 06/01/22 05/31/22 History mL) subcutaneous pen (Basaglar KwikPen U-100 Insulin) levothyroxine 75 mcg tablet 75 mcg PO DAILY 06/01/22 06/01/22 05/31/22 History tizanidine 2 mg tablet 2 mg PO BID PRN Pain 06/01/22 06/01/22 Unknown History Allergies Allergy/AdvReac Type Severity Reaction Status Date / Time codeine Allergy Bertram Verified 01/27/20 00:46 Lip/Tongue/Throat lisinopril Allergy EDGAR-Josephinell Verified 09/10/20 01:21 Lip/Tongue/Throat PFSH Acute PFSH: Medical History Diabetes Hypertension Vitals/I&O/Wt Last Vital Signs Pulse 65 06/01/22 15:05 Resp 28 H 06/01/22 15:05 BP 160/97 06/01/22 15:05 Pulse Ox 98 06/01/22 15:05 O2 Del Method 06/01/22 15:05 Weight last 48 hrs Weight 148 lb Physical Exam Narrative: Awake oriented but in moderate to severe distress No JVD cyanosis or icterus Heart regular S1-S2 Abdomen soft nontender nontender Lungs clear to auscultate bilaterally 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 Will add beta-keira over next 24 hours. Echocardiogram will be obtained to assess LV function. (2) Diabetes: Sliding scale insulin (3) Hypertension: Currently stable and under control Consult Attestations Medical Necessity Statement: Patient require continuation hospitalization for above defined care Coding Level of Care Code Acute Code for g Fwd Diagnoses ST elevation myocardial infarction (STEMI) I21.3 Diabetes E11.9 Hypertension I10
--- NOTE | 2022-06-01 16:43 | PC.NURSE ---
Arrived from pathology laboratory director, Hemotoma to Right wrist TR band, pathology laboratory director staff addressed site and placed new TR band
--- NOTE | 2022-06-01 16:51 | PC.NURSE ---
Dr. Herzog gave v.o. to hold Aggrastat
[2022-06-01 17:50] LABS: Troponin 5 2HR 3042 ng/L (0-10); Troponin 5 2HR Delta 3028 ABS# (0-10)
--- NOTE | 2022-06-01 18:02 | ECG_ITS ---
[facility] Test Date: 2022-06-01 Pat Name: Skye Oreilly Department: Room: ICU04 Gender: Female Customer Success Intern: : 1950 Requested By: Chi Leon Order Number: [id number] Reading MD: AISHA HERNANDEZ Measurements Intervals [place] Rate: 78 P: 38 [place]: 151 QRS: -25 QRSD: 95 T: 89 QT: 393 QTc: 448 Interpretive Statements SINUS RHYTHM WITH MARKED SINUS ARRHYTHMIA INFERIOR MYOCARDIAL INFARCTION , OF INDETERMINATE AGE [40+ ms Q WAVE AND/OR ST/T ABNORMALITY IN II/aVF] Compared to ECG 06/01/2022 14:42:59 Ventricular premature complex(es) no longer present ST (T wave) deviation no longer present Myocardial infarct finding still present Electronically Signed On 06-03-2022 23:45:05 CDT by AISHA HERNANDEZ [id number]
--- NOTE | 2022-06-01 18:35 | PM.HP ---
Providers/Chief Complaint Admitting Physician: Geneva Bridges MD Primary Care Provider: Davin Santos Chief Complaint: n/v/chest pain History of Present Illness Skye Oreilly is a 71 year old female who presents today with chief complaint of chest pain shortness of breath, nausea, vomiting and diaphoresis which started around noon. In the ER STEMI was called, she went to the Assistant Professor Of Biology received a stent to the RCA currently reviewed cath report, hospital service has been requested to admit her after her angioplasty. Patient is chest pain-free hemodynamically stable, she is in ICU for, getting echo. Doing well on room air. Creatinine 1.8, significant delta troponin chest x-ray unremarkable Patient describing her chest pain as heaviness, pressure-like sensation, associated with shortness of breath, nausea vomiting diaphoresis it lasted until she arrived in the ER and received medications. EKG with inferior lateral ST elevation Review of Systems Const: Denies: fever(s) Eyes: Denies: change in vision ENMT: Denies: throat pain Card: Reports: chest pain Resp: Denies: dyspnea GI: Denies: abdominal pain : Denies: flank pain Musc: Denies: neck pain Skin/Breast: Denies: rash Neuro: Denies: headache(s) Psych: Denies: anxiety Endo: Denies: polyuria Jair/Lymph: Denies: easy bruising All/Imm: Denies: urticaria Medications/Allergies Home Medications Medication Instructions Recorded Confirmed Last Taken Type aspirin 81 mg chewable tablet 81 mg PO DAILY 06/01/22 06/01/22 06/01/22 History insulin glargine 100 unit/mL (3 16 unit SUBCUT BEDTIME 06/01/22 06/01/22 05/31/22 History mL) subcutaneous pen (Basaglar KwikPen U-100 Insulin) levothyroxine 75 mcg tablet 75 mcg PO DAILY 06/01/22 06/01/22 05/31/22 History tizanidine 2 mg tablet 2 mg PO BID PRN Pain 06/01/22 06/01/22 Unknown History Allergies Allergy/AdvReac Type Severity Reaction Status Date / Time codeine Allergy SUYAPAY-Josephinell Verified 01/27/20 00:46 Lip/Tongue/Throat lisinopril Allergy ALGY-Swell Verified 09/10/20 01:21 Lip/Tongue/Throat PFSH Acute PFSH: Medical History Diabetes Hypertension Surgical History No pertinent past surgical history Family History (Updated 06/01/22 @ 18:44 by Pilo Liu MD) Denies family history of CAD (coronary artery disease) Social History (Updated 06/01/22 @ 18:44 by Pilo Liu MD) Smoking and tobacco status: never smoked Vitals/I&O/Wt Last Vital Signs Pulse 68 06/01/22 18:00 Resp 17 06/01/22 18:00 BP 136/101 06/01/22 18:00 Pulse Ox 97 06/01/22 18:00 O2 Del Method 06/01/22 17:53 Weight last 48 hrs Weight 67.132 kg Physical Exam Narrative: Euvolemic Chest pain-free S1, S2 Currently on room air Abdomen soft Hypertensive GCS 15 Nonfocal neuro exam Pleasant and cooperative Laying flat No acute distress Data 06/01/22 14:50 06/01/22 14:50 A&P Assessment and plan (1) ST elevation myocardial infarction (STEMI): (2) No pertinent past surgical history: (3) Diabetes: (4) Hypertension: Plan STEMI: Status post stent in RCA Start aspirin and Plavix for 1 year Echo to be followed Cardiology on board History of diabetes check A1c level Check lipid panel Hypertension optimize antihypertensive regimen Hypothyroid Check TSH level Continue levothyroxine 75 mics Cardiac diet DVT prophylaxis on board Full code Disposition: Patient most likely will be able to go home in next 48 hours Attestations Medical Necessity Statement*: More than [address] elevation myocardial infarction (STEMI) I21.3 No pertinent past surgical history Z78.9 Diabetes E11.9 Hypertension I10
[2022-06-01] MEDS: amlodipine 10 mg Tablet PO (19:48)
[2022-06-01] MEDS: atorvastatin 40 mg Tablet PO (20:21)
[2022-06-01] MEDS: metoprolol tartrate 25 mg Tablet PO (20:22)
[2022-06-01] MEDS: hyDRALAzine 25 mg Tablet PO (20:22)
[2022-06-01 20:24] LABS: Chol HDL Ratio 4.29 mg/dL (0.0-4.40); Cholesterol 270 mg/dL (0-200); HDL Cholesterol 63 mg/dL (60-100); LDL Cholesterol Calculated 158 mg/dL (50-129); LDL HDL Ratio 2.51 RATIO (0.00-3.22); Thyroid Stimulating Hormone 14.47 uIU/mL (0.27-4.20); Triglycerides 246 mg/dL (0-150)
[2022-06-01 20:27] LABS: Glucose Point of Care 198 mg/dL (70-110)
[2022-06-01 20:30] LABS: Estmated Average Glucose 174; Hemoglobin A1C 7.7 % (4.0-6.0)
--- NOTE | 2022-06-01 20:57 | ECG_ITS ---
[facility] Test Date: 2022-06-01 Pat Name: Skye Oreilly Department: Room: ICU04 Gender: Female Roughener: : 1950 Requested By: Chi Leon Order Number: [id number] Reading MD: AISHA HERNANDEZ Measurements Intervals Harvey Rate: 73 P: 35 DE: 140 QRS: -28 QRSD: 79 T: 36 QT: 378 QTc: 417 Interpretive Statements SINUS RHYTHM WITH MARKED SINUS ARRHYTHMIA POSSIBLE ANTERIOR MYOCARDIAL INFARCTION , PROBABLY OLD [30 ms Q WAVE IN V3/V4, OR R < 0.2 mV IN V4] Compared to ECG 06/01/2022 18:02:02 No significant changes Electronically Signed On 06-03-2022 23:45:01 CDT by AISHA HERNANDEZ [id number]
[2022-06-01 20:58] LABS: Troponin 5 6HR Delta 5644 ng/L (0-12)
[2022-06-01 20:59] LABS: Troponin 5 6HR 5658 ng/L (0-10)
--- NOTE | 2022-06-01 21:00 | PC.NURSE ---
Received critical Troponin of 5,658 and a Troponin 6 hour Delta of 5,644. Results not reported due to expected results from recent STEMI and stent.
[2022-06-01] MEDS: ondansetron 2 mg/ML SDV 2 mL 4 MG IVP (22:30)
[2022-06-02] VITALS (41 sets, daily range): BP systolic 85–131; BP diastolic 51–91; PULSE 53–87; RESP 13–28; TEMP 36.6–36.9; O2SAT 95–100; BMI 4133.6
[2022-06-02] MEDS: sodium chloride 0.9% 1,000 ML 75 ML IV (00:26)
[2022-06-02 03:36] LABS: Basophils % 0.2 %; Eosinophils % 0.1 %; Hemoglobin 10.3 g/dL (11.5-15.3); Lymphocytes # 1.2 10^3/uL (0.8-4.8); Lymphocytes % 12.5 %; Mean Corpuscular HGB Conc 31.2 g/dL (30.0-36.0); Mean Corpuscular Hemoglobin 31.4 pg (28.0-34.0); Mean Corpuscular Volume 100.6 fl (81-99); Mean Platelet Volume 11.8 fL (7.4-10.4); Monocytes # 0.6 10^3/uL (0.2-0.9); Monocytes % 6.1 %; Neutrophils # 7.52 10^3/uL (1.8-7.7); Neutrophils % 80.9 %; Nucleated Red Blood Cells % 0 %; Platelet Count 248 10^3/cmm (130-400); Red Blood Count 3.28 10^6/uL (4.1-5.3); Red Cell Distribution Width 12.4 % (12.1-15.1); White Blood Count 9.3 10^3/uL (4.0-10.0)
[2022-06-02 04:00] LABS: Alanine Aminotransferase 41 U/L (0-33); Albumin Level 3.3 g/dL (3.5-5.2); Alkaline Phosphatase 64 U/L (35-105); Anion Gap 18.8 (5-19); Aspartate Amino Transferase 189 U/L (0-32); Blood Urea Nitrogen 26 mg/dL (8-23); Calcium 8.2 mg/dL (8.5-10.5); Carbon Dioxide 17 mmol/L (22-29); Chloride 106 mmol/L (98-107); Globulin 2.8 g/dL (1.3-4.6); Glucose 196 mg/dL (65-115); Magnesium 1.8 mg/dL (1.7-2.3); Osmolality Calculated 294 mOsm/kg (285-295); Potassium 4.8 mmol/L (3.5-5.1); Sodium 137 mmol/L (136-145); Total Bilirubin 0.3 mg/dL (0.15-1.2); Total Protein 6.1 g/dL (6.6-8.7)
--- NOTE | 2022-06-02 07:07 | PM.PN ---
Subjective Subjective: 71yo F seen at bedside this AM s/p TREE of RCA by Dr. Nuñez on 06/01/22. Pt states she is feeling much improved this AM. no longer having any CP, palpitations of SOB. Overnight pt was able to sleep well. 2 urinations overnight; however volume not recorded. BP Soft overnight with 85/51, improved to 94/63 on AM evaluation. Denies CP, palpitations, SOB, cough, N/V/D/C, abd pain, ROCHE, vision changes, loss of sensation or strength in extremities Medications: Reviewed: Yes Vitals/I&O/Wt Last Vital Signs Temp 98.3 F 06/02/22 04:30 Pulse 67 06/02/22 06:00 Resp 21 H 06/02/22 06:00 BP 85/51 06/02/22 06:00 Pulse Ox 95 06/02/22 06:00 O2 Del Method 06/02/22 04:30 Weight last 48 hrs Weight 147 lb Weight 148 lb Physical Exam Narrative: Lines: IV General: AOx3, no acute distress, well developed, well nourished, appears stated age psych: appropriate mood and affect. good judgment and insight. No suicidal or homicidal ideation. Head: atraumatic, normocephalic, no mass/lesions Eyes: conjunctiva clear w/o exudate or hemorrhage. non-icteric, EOM intact, PERRLA. no signs of nystagmus Nose: nasal mucosa pink, septum midline Oropharynx: good dentition, pink moist mucosa, non-deviated tongue, no buccal nodules/lesions. no pharyngeal exudate Neck: FROM, no lymphadenopathy, no tracheal deviation, non tender, thyroid gland normal w/o mass. supple Chest: atraumatic, symmetrical CVD: RRR, normal S1 and S2, 2/6SEM LSB, no R/G. 2+ pulse x 4 extremities, no JVD, no carotid bruit. Lungs: clear lung sounds in all garcia, no rhonchi, wheezing, rales. Abdomen: NT, ND, soft, NABS. No hepatosplenomegaly, no mass. umbilicus midline w/o herniation : not done on todays examination Rectal: not done on todays examination Spine: no visible deformities, FROM, 5/5 strength, Extremities: FROM and 5/5 strength in BUE and BLE. no visible joint abnormalities on active and passive ROM. Neuro: CNII-XII grossly intact. No atrophy, weakness, tremors or clonus.? 2+ DTR, no sensory abnormalities. Skin:? no rash, vesicles, lesions. Data 06/02/22 03:19 06/02/22 03:19 Echo: My impression: 1-Normal left ventricular size, systolic function and wall?thickness, with no regional wall motion abnormalities. Leftventricular ejection fraction is estimated at 60 %. Grade I/IV?diastolic dysfunction (abnormal relaxation filling pattern),normal to mildly elevated filling pressures. ?2-Structurally normal mitral valve without significant stenosis or prolapse.? There is moderate mitral regurgitation.? ?3-There is no pericardial effusion. ?4-Right atrial pressure is around 5 mm of mercury. Other data: Skye Oreilly is a 71 year old female who presents today with chief complaint of chest pain shortness of breath, nausea, vomiting and diaphoresis which started around noon.? 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 Patient is chest pain-free hemodynamically stable, she is in ICU for, getting echo.? Doing well on room air.? Creatinine 1.8, significant delta troponin chest x-ray unremarkable Patient describing her chest pain as heaviness, pressure-like sensation, associated with shortness of breath, nausea vomiting diaphoresis it lasted until she arrived in the ER and received medications.? EKG with inferior lateral ST elevation A&P Assessment and plan (1) ST elevation myocardial infarction (STEMI): s/p DEL of RCA by Dr. Nuñez on 06/01/22 medical management for diagonal branch ASA, plavix SCD's will transition to eliquis today Dr. Nuñez consulted (2) Diabetes: LDSSI will check A1c this AM (3) Hypertension: Norvasc 10mg, Lopressor 25mg BID, Hydralazine 25mg TID will give Lopressor 25mg BID. cardioprotective HOLD hydralazine and norvasc. likely to discontinue if BP remains low (4) DULCE (acute kidney injury): Cr increasing from 1.4 on admit to 1.9 this AM concern for contrast induced nephropathy ontop of baseline CKD have increased NS to 100ml, encouraged PO intake BMP in Am (5) Hypothyroidism: elevated TSH, Synthroid increased from 75 to 88mcg (6) Hyperlipidemia associated with type 2 diabetes mellitus: lipitor 40mg (7) Hypotension: increased NS to 100ml, encourged PO intake continue BB for cardiac protection. Plan A/ STEMI: Status post stent in RCA CAD DULCE (Cr. 1.9) - concern for contrast induced nephropathy vs hypotension? Hypotension Hypothyroidism Hyperlipidemia Hyperglycemia p/ Lines: IV NS 100ml/hr ASA, plavix x 1yr 2/2 stent placement continue anti-HTN medications for now. recheck BP later this AM. Hold AM hydralazine if BP still <100/60 likely to discontinue hydralazine and norvasc. Synthroid increased from 75 to 88mcg advance diet: cardiac diet DVT prophylaxic with SCD's. will transition to eliquis FULL CODE pending labs: A1c pending imaging: ECHO Disposition: Patient most likely will be able to go home in next 24 hours Attestations Medical Necessity Statement*: Pt needs to remain hospitalized for s/p stent placement, hypotension and DULCE Coding Level of Care Code [address] myocardial infarction (STEMI) I21.3 Diabetes E11.9 Hypertension I10 DULCE (acute kidney injury) N17.9 Hypothyroidism E03.9 Hyperlipidemia associated with type 2 diabetes mellitus E11.69; E78.5 Hypotension I95.9
[2022-06-02 07:54] LABS: Glucose Point of Care 169 mg/dL (70-110)
[2022-06-02 08:38] LABS: Estmated Average Glucose 169; Hemoglobin A1C 7.5 % (4.0-6.0)
[2022-06-02] MEDS: insulin lispro 100 unit/1 mL SUBCUT ×2 (09:15→11:54)
[2022-06-02] MEDS: pantoprazole 40 mg SDV IVP (09:48)
[2022-06-02] MEDS: clopidogrel 75 mg Tablet PO (09:49)
[2022-06-02] MEDS: aspirin 81 mg Chew Tablet PO (09:49)
[2022-06-02] MEDS: metoprolol tartrate 25 mg Tablet PO ×2 (09:49→20:56)
--- NOTE | 2022-06-02 09:52 | PC.NURSE ---
Part of Am meds am. PEr Dr Nuñez he is going to adjust her meds. Heldp off on hydralzine, amlodipine due to possible med changes and her BP. Levothyroxine held for med change.
--- NOTE | 2022-06-02 10:53 | PM.PN ---
Subjective Subjective: Denies any complaint. 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 Continue medical management including aspirin and statin add beta-keira continue Plavix. Will titrate medication patient will be staying 1 more night for optimization of medications post STEMI, echocardiogram showed normal ejection fraction 60% (2) CKD (chronic kidney disease) stage 4, GFR 15-29 ml/min: Patient has underlying chronic kidney disease. Remains stable creatinine. Will discontinue IV fluid (3) Hyperlipidemia associated with type 2 diabetes mellitus: Continue statin. Attestations Medical Necessity Statement*: Patient require continuation hospitalization for above defined care Coding Level of Care Code Acute Code for [facility] Diagnoses ST elevation myocardial infarction (STEMI) I21.3 CKD (chronic kidney disease) stage 4, GFR 15-29 ml/min N18.4 Hyperlipidemia associated with type 2 diabetes mellitus E11.69; E78.5
[2022-06-02 11:05] LABS: Glucose Point of Care 153 mg/dL (70-110)
--- NOTE | 2022-06-02 12:30 | PC.NURSE ---
Dr Herzog informed of bradycardia of 55, lowest rate 49 after beta keira admin this admin. Also informed amlodipine and hydralazine held this am. Dr stated to discontinue those medications. Held Levothyroxie this am as he stated he was going to change meds and her TSH high. Per go ahead and give. Will wait at least an hour after lunch to admin.
[2022-06-02] MEDS: sodium chloride 0.9% 1,000 ML 100 ML IV (12:32)
[2022-06-02] MEDS: levothyroxine 88 mcg Tablet PO (14:25)
[2022-06-02 16:37] LABS: Glucose Point of Care 83 mg/dL (70-110)
--- NOTE | 2022-06-02 18:48 | PC.NURSE ---
Pt remians alert and oreinted. No complaints of chest pain, shortness of breath, etc. Pt remained in sinus rhythm, she was bradycardic after metoprolol PO admin this am. Her heart rate averaged 55 at that time she is now in normal sinus rhythm. IV fluids remain infusing at 100ml/hr due to her creatinine. SHe has picked at her meals today. She has had scant amount of urine today. She has been up to [facility] several times this shift with diarrhea.
[2022-06-02] MEDS: lactated ringers 1,000 ML 120 ML IV (19:46)
[2022-06-02 20:54] LABS: Glucose Point of Care 106 mg/dL (70-110)
[2022-06-02] MEDS: atorvastatin 40 mg Tablet PO (20:57)
--- NOTE | 2022-06-02 22:06 | PC.NURSE ---
Pt's blood sugar is noted to be 106 at this time. Pt refused the 16 units of Lantus at this time. Pt states she only takes 4 units at home if her blood sugar is 106. Dr. Valadez notified and approved an order for 4 units one time.
[2022-06-02] MEDS: insulin glargine 100 units/1 mL 4 UNIT SUBCUT (22:11)
[2022-06-02 23:50] LABS: Glucose Point of Care 196 mg/dL (70-110)
[2022-06-03] VITALS (19 sets, daily range): BP systolic 98–143; BP diastolic 54–86; PULSE 59–90; RESP 10–33; TEMP 36.7–36.9; O2SAT 93–97; BMI 30.9
[2022-06-03] MEDS: lactated ringers 1,000 ML 120 ML IV (05:12)
[2022-06-03 07:57] LABS: Glucose Point of Care 77 mg/dL (70-110)
--- NOTE | 2022-06-03 08:26 | PM.PN ---
Subjective Subjective: Seen this AM at bedside Overnight BP improved, HR in 60's and UOP of 500 overnight Pt stats she is feeling much improved. Denying CP, palpitations, SOB, N/V. Continues to have some diarrhea but significantly improved. only 1 BM this AM. Vitals/I&O/Wt Last Vital Signs Temp 98.5 F 06/02/22 22:00 Pulse 90 06/03/22 07:45 Resp 17 06/03/22 06:00 BP 111/72 06/03/22 06:00 Pulse Ox 94 06/03/22 07:45 O2 Del Method 06/03/22 07:45 06/02/22 06/03/22 06/03/22 22:59 06:59 14:59 Intake Total 500 / 2000 1000 / 3000 Output Total 50 / 250 250 / 500 Balance 450 / 1750 750 / 2500 Weight last 48 hrs Weight 158 lb 11.725 oz Weight 147 lb Weight 148 lb Physical Exam Narrative: Lines: IV General: AOx3, no acute distress, well developed, well nourished, appears stated age psych: appropriate mood and affect. good judgment and insight. No suicidal or homicidal ideation. Head: atraumatic, normocephalic, no mass/lesions Eyes: conjunctiva clear w/o exudate or hemorrhage. non-icteric, EOM intact, PERRLA. no signs of nystagmus Nose: nasal mucosa pink, septum midline Oropharynx: good dentition, pink moist mucosa, non-deviated tongue, no buccal nodules/lesions. no pharyngeal exudate Neck: FROM, no lymphadenopathy, no tracheal deviation, non tender, thyroid gland normal w/o mass. supple Chest: atraumatic, symmetrical CVD: RRR, normal S1 and S2, 2/6SEM LSB, no R/G. 2+ pulse x 4 extremities, no JVD, no carotid bruit. Lungs: clear lung sounds in all garcia, no rhonchi, wheezing, rales. Abdomen: NT, ND, soft, NABS. No hepatosplenomegaly, no mass. umbilicus midline w/o herniation : not done on todays examination Rectal: not done on todays examination Spine: no visible deformities, FROM, 5/5 strength, Extremities: FROM and 5/5 strength in BUE and BLE. no visible joint abnormalities on active and passive ROM. Neuro: CNII-XII grossly intact. No atrophy, weakness, tremors or clonus.? 2+ DTR, no sensory abnormalities. Skin:? no rash, vesicles, lesions. Data 06/02/22 03:19 06/02/22 03:19 A&P Assessment and plan (1) ST elevation myocardial infarction (STEMI): s/p DEL of RCA by Dr. Nuñez on 06/01/22 medical management for diagonal branch ASA, plavix x 1yr at discharge SCD's. will consider transition to eliquis Dr. Nuñez consulted (2) Diabetes: Continue home Insulin Continue LDSSI A1c 7.5 (06/02/22) (3) Hypertension: HELD Norvasc 10mg, Hydralazine 25mg TID Will give Lopressor 12.5mg this AM 2/2 lower pulse rate in 60's and appropriate BP will continue at 12.5mg BID Likely d/c hydralazine and norvasc at time of discharge (4) DULCE (acute kidney injury): worsening Cr this AM. went form 1.9 to 2.3 Contrast induced nephropathy vs IVVD restart IVF, encouraged PO intake (5) Hypothyroidism: Synthroid increased from 75 to 88mcg (6) Hyperlipidemia associated with type 2 diabetes mellitus: lipitor 40mg (7) Hypotension: resolved stopped fluids Plan A/ STEMI: Status post stent in RCA CAD DULCE (Cr. 1.9) - concern for contrast induced nephropathy vs hypotension? Hypotension Hypothyroidism Hyperlipidemia Hyperglycemia p/ Lines: IV restart IVF ASA, plavix x 1yr 2/2 stent placement decrease lopressor from 25mg to 12.5mg BID. Will transition from SCD's to eliquis Synthroid increased from 75 to 88mcg advance diet: cardiac diet DVT prophylaxic with SCD's. will transition to eliquis FULL CODE Disposition: Patient most likely will be able to go home in next 24 hours Attestations Medical Necessity Statement*: hospitalized for contrast induced nephropathy. likely d/c in 24hrs Coding Level of Care Code [address] elevation myocardial infarction (STEMI) I21.3 Diabetes E11.9 Hypertension I10 DULCE (acute kidney injury) N17.9 Hypothyroidism E03.9 Hyperlipidemia associated with type 2 diabetes mellitus E11.69; E78.5 Hypotension I95.9
[2022-06-03 08:41] LABS: Basophils % 0.3 %; Eosinophils # 0.1 10^3/uL (0.0-0.8); Eosinophils % 0.7 %; Hematocrit 34.1 % (37.0-47.0); Hemoglobin 10.8 g/dL (11.5-15.3); Lymphocytes # 1.8 10^3/uL (0.8-4.8); Lymphocytes % 13.8 %; Mean Corpuscular HGB Conc 31.7 g/dL (30.0-36.0); Mean Corpuscular Hemoglobin 31.4 pg (28.0-34.0); Mean Corpuscular Volume 99.1 fl (81-99); Mean Platelet Volume 11.6 fL (7.4-10.4); Monocytes # 1.2 10^3/uL (0.2-0.9); Monocytes % 8.9 %; Neutrophils # 9.77 10^3/uL (1.8-7.7); Neutrophils % 76.1 %; Nucleated Red Blood Cells % 0 %; Platelet Count 280 10^3/cmm (130-400); Red Blood Count 3.44 10^6/uL (4.1-5.3); Red Cell Distribution Width 12.8 % (12.1-15.1); White Blood Count 12.9 10^3/uL (4.0-10.0)
[2022-06-03] MEDS: metoprolol tartrate 25 mg Tablet 12.5 MG PO ×2 (09:05→21:03)
[2022-06-03] MEDS: aspirin 81 mg Chew Tablet PO (09:05)
[2022-06-03] MEDS: levothyroxine 88 mcg Tablet PO (09:05)
[2022-06-03] MEDS: clopidogrel 75 mg Tablet PO (09:05)
[2022-06-03] MEDS: pantoprazole 40 mg SDV IVP (09:05)
[2022-06-03 09:13] LABS: Alanine Aminotransferase 46 U/L (0-33); Albumin Level 3.3 g/dL (3.5-5.2); Alkaline Phosphatase 71 U/L (35-105); Anion Gap 15.4 (5-19); Aspartate Amino Transferase 116 U/L (0-32); Blood Urea Nitrogen 32 mg/dL (8-23); Calcium 8.4 mg/dL (8.5-10.5); Carbon Dioxide 19 mmol/L (22-29); Chloride 104 mmol/L (98-107); Globulin 3.4 g/dL (1.3-4.6); Glucose 85 mg/dL (65-115); Osmolality Calculated 284 mOsm/kg (285-295); Potassium 4.4 mmol/L (3.5-5.1); Sodium 134 mmol/L (136-145); Total Bilirubin 0.3 mg/dL (0.15-1.2); Total Protein 6.7 g/dL (6.6-8.7)
--- NOTE | 2022-06-03 12:11 | PM.PN ---
Subjective Subjective: Patient creatinine has bumped up otherwise overall feeling fine denies any chest pain Medications: Reviewed: Yes Vitals/I&O/Wt Last Vital Signs Temp 98.5 F 06/02/22 22:00 Pulse 90 06/03/22 07:45 Resp 17 06/03/22 06:00 BP 111/72 06/03/22 06:00 Pulse Ox 94 06/03/22 07:45 O2 Del Method 06/03/22 07:45 06/02/22 06/03/22 06/03/22 22:59 06:59 14:59 Intake Total 500 / 2000 1000 / 3000 Output Total 50 / 250 250 / 500 Balance 450 / 1750 750 / 2500 Weight last 48 hrs Weight 158 lb 11.725 oz Weight 147 lb Weight 148 lb Physical Exam Narrative: Alert awake oriented x3, sitting in the chair No JVD cyanosis or icterus Heart regular S1-S2 Abdomen soft 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 Continue medical management including aspirin and statin add beta-keira continue Plavix. Will titrate medication patient will be staying 1 more night for optimization of medications post STEMI, echocardiogram showed normal ejection fraction 60% On today's visit dated 06/03/2022 patient is doing fine from cardiovascular perspective, will reduce metoprolol to 12.5 twice daily due to bradycardia. Continue aspirin statin beta-keira and clopidogrel (2) CKD (chronic kidney disease) stage 4, GFR 15-29 ml/min: Patient creatinine has worsened would like to rule out contrast-induced nephropathy will continue IV fluid 100 mL/h for next 24 hours recheck creatinine in the morning. (3) Hyperlipidemia associated with type 2 diabetes mellitus: Continue statin. Plan Patient will be staying in the hospital for 1 more day for IV fluid since creatinine has worsened after Left heart cath Attestations Medical Necessity Statement*: Patient require continuation hospitalization for above defined care Coding Level of Care Code Acute Code for [facility] Diagnoses ST elevation myocardial infarction (STEMI) I21.3 CKD (chronic kidney disease) stage 4, GFR 15-29 ml/min N18.4 Hyperlipidemia associated with type 2 diabetes mellitus E11.69; E78.5
--- NOTE | 2022-06-03 12:15 | PC.NURSE ---
Pt with IV infusing, out in waiting room with family.
[2022-06-03 12:36] LABS: Glucose Point of Care 140 mg/dL (70-110)
[2022-06-03 12:59] LABS: Basophils # 0.1 10^3/uL (0.0-0.1); Basophils % 0.4 %; Eosinophils # 0.1 10^3/uL (0.0-0.8); Eosinophils % 0.7 %; Hematocrit 35.2 % (37.0-47.0); Hemoglobin 11.4 g/dL (11.5-15.3); Lymphocytes # 2.2 10^3/uL (0.8-4.8); Lymphocytes % 14.4 %; Mean Corpuscular HGB Conc 32.4 g/dL (30.0-36.0); Mean Corpuscular Volume 98.9 fl (81-99); Mean Platelet Volume 11.2 fL (7.4-10.4); Monocytes # 1.2 10^3/uL (0.2-0.9); Monocytes % 7.9 %; Neutrophils # 11.52 10^3/uL (1.8-7.7); Neutrophils % 76.2 %; Nucleated Red Blood Cells % 0 %; Platelet Count 306 10^3/cmm (130-400); Red Blood Count 3.56 10^6/uL (4.1-5.3); Red Cell Distribution Width 12.6 % (12.1-15.1); White Blood Count 15.1 10^3/uL (4.0-10.0)
[2022-06-03] MEDS: sodium chloride 0.9% 1,000 ML 120 ML IV (14:11)
--- NOTE | 2022-06-03 14:18 | PC.NURSE ---
Report called to CSU. Report given to Irwin RN
--- NOTE | 2022-06-03 14:25 | PC.NURSE ---
Pt transferred to 104. All belongings transferred with pt. Further updated Irwin, RN
[2022-06-03 16:58] LABS: Glucose Point of Care 148 mg/dL (70-110)
[2022-06-03] MEDS: insulin lispro 100 unit/1 mL SUBCUT (17:11)
[2022-06-03] MEDS: atorvastatin 40 mg Tablet PO (21:03)
[2022-06-03 21:10] LABS: Glucose Point of Care 61 mg/dL (70-110)
[2022-06-03 21:40] LABS: Glucose Point of Care 77 mg/dL (70-110)
[2022-06-04] VITALS (7 sets, daily range): BP systolic 132–145; BP diastolic 72–97; PULSE 69–86; RESP 14–23; TEMP 36.5–36.8; O2SAT 90–99
[2022-06-04] MEDS: sodium chloride 0.9% 1,000 ML 120 ML IV (02:55)
[2022-06-04 04:43] LABS: Alanine Aminotransferase 35 U/L (0-33); Albumin Level 3.1 g/dL (3.5-5.2); Alkaline Phosphatase 68 U/L (35-105); Anion Gap 14.9 (5-19); Aspartate Amino Transferase 68 U/L (0-32); Blood Urea Nitrogen 30 mg/dL (8-23); Calcium 8.1 mg/dL (8.5-10.5); Carbon Dioxide 18 mmol/L (22-29); Chloride 104 mmol/L (98-107); Glucose 110 mg/dL (65-115); Osmolality Calculated 283 mOsm/kg (285-295); Potassium 3.9 mmol/L (3.5-5.1); Sodium 133 mmol/L (136-145); Total Bilirubin 0.3 mg/dL (0.15-1.2); Total Protein 6.1 g/dL (6.6-8.7)
[2022-06-04 06:34] LABS: Glucose Point of Care 99 mg/dL (70-110)
--- NOTE | 2022-06-04 07:28 | PM.PN ---
Subjective Subjective: Seen at bedside this AM States she is doing very well this morning and desires to go home. Denies CP, palpitations, SOB, N/V/D/C. Better PO intake in past 24hrs. making urine Medications: Reviewed: Yes Vitals/I&O/Wt Last Vital Signs Temp 98.1 F 06/04/22 07:06 Pulse 86 06/04/22 07:06 Resp 14 06/04/22 07:06 BP 136/86 06/04/22 07:06 Pulse Ox 90 06/04/22 07:06 O2 Del Method 06/04/22 07:06 06/03/22 06/04/22 06/04/22 22:59 06:59 14:59 Intake Total 1716 / 3516 480 / 3996 Output Total 2200 / 2600 1400 / 4000 Balance -484 / 916 -920 / -4 Weight last 48 hrs Weight 168 lb 14.4 oz Weight 158 lb 11.725 oz Physical Exam Narrative: Lines: IV General: AOx3, no acute distress, well developed, well nourished, appears stated age psych: appropriate mood and affect. good judgment and insight. No suicidal or homicidal ideation. Head: atraumatic, normocephalic, no mass/lesions Eyes: conjunctiva clear w/o exudate or hemorrhage. non-icteric, EOM intact, PERRLA. no signs of nystagmus Nose: nasal mucosa pink, septum midline Oropharynx: good dentition, pink moist mucosa, non-deviated tongue, no buccal nodules/lesions. no pharyngeal exudate Neck: FROM, no lymphadenopathy Chest: atraumatic, symmetrical CVD: RRR, normal S1 and S2, 2/6SEM LSB, no R/G. 2+ pulse x 4 extremities, no JVD, no carotid bruit. Lungs: clear lung sounds in all garcia, no rhonchi, wheezing, rales. Abdomen: NT, ND, soft, NABS. No hepatosplenomegaly, Spine: no visible deformities, FROM, 5/5 strength, Extremities: FROM and 5/5 strength in BUE and BLE. Neuro: CNII-XII grossly intact, no sensory abnormalities. Skin:? no rash, vesicles, lesions. Data 06/03/22 12:46 06/04/22 04:00 A&P Assessment and plan (1) ST elevation myocardial infarction (STEMI): s/p DEL of RCA by Dr. Nuñez on 06/01/22 medical management for diagonal branch ASA, plavix x 1yr at discharge transition to eliquis this AM Dr. Nuñez consulted (2) Diabetes: Continue home Insulin Continue LDSSI A1c 7.5 (06/02/22) (3) Hypertension: HELD Norvasc 10mg, Hydralazine 25mg TID Currently on Lopressor 12.5mg BID. tolerating well. HR and BP appropriate on this dosage. Likely d/c hydralazine and norvasc at time of discharge (4) DULCE (acute kidney injury): Cr showing improvement from 2.3 to 1.9. Contrast induced nephropathy vs IVVD continue IVF, encourage PO intake will re-eval CMP this PM. if further improvement will be clear to go home (5) Hypothyroidism: Synthroid increased from 75 to 88mcg (6) Hyperlipidemia associated with type 2 diabetes mellitus: lipitor 40mg (7) Hypotension: resolved Plan A/ STEMI: Status post stent in RCA CAD DULCE 2/2 contrast induced nephropathy. will re-eval this PM Hypotension Hypothyroidism Hyperlipidemia Hyperglycemia p/ Lines: IV restart IVF ASA, plavix x 1yr 2/2 stent placement decrease lopressor from 25mg to 12.5mg BID. Eliquis 10mg BID x 7 days then 5mg BID. will send home with starter pack Synthroid increased from 75 to 88mcg advance diet: cardiac diet FULL CODE Disposition: Patient most likely will be able to go home in next 24 hours Attestations Medical Necessity Statement*: Patient require continuation hospitalization for above defined care Coding Level of Care Code [address] elevation myocardial infarction (STEMI) I21.3 Diabetes E11.9 Hypertension I10 DULCE (acute kidney injury) N17.9 Hypothyroidism E03.9 Hyperlipidemia associated with type 2 diabetes mellitus E11.69; E78.5 Hypotension I95.9
[2022-06-04] MEDS: levothyroxine 88 mcg Tablet PO (09:17)
[2022-06-04] MEDS: aspirin 81 mg Chew Tablet PO (09:17)
[2022-06-04] MEDS: clopidogrel 75 mg Tablet PO (09:17)
[2022-06-04] MEDS: pantoprazole 40 mg SDV IVP (09:18)
[2022-06-04] MEDS: metoprolol tartrate 25 mg Tablet 12.5 MG PO (09:21)
[2022-06-04] MEDS: apixaban 5 mg Tablet 10 MG PO (09:23)
--- NOTE | 2022-06-04 11:41 | P.PN_ITS ---
Subjective Subjective: No overnight event. Creatinine has slightly improved Medications: Reviewed: Yes Vitals/I&O/Wt Last Vital Signs Temp 98.2 F 06/04/22 11:08 Pulse 82 06/04/22 11:08 Resp 18 06/04/22 11:08 BP 142/97 06/04/22 11:08 Pulse Ox 99 06/04/22 11:08 O2 Del Method 06/04/22 11:08 06/03/22 06/04/22 06/04/22 22:59 06:59 14:59 Intake Total 1716 / 3516 480 / 3996 1120 / 1120 Output Total 2200 / 2600 1400 / 4000 400 / 400 Balance -484 / 916 -920 / -4 720 / 720 Weight last 48 hrs Weight 168 lb 14.4 oz Weight 158 lb 11.725 oz Physical Exam Narrative: Alert awake oriented x3, right wrist bruising has improved No JVD cyanosis or icterus Heart regular S1-S2 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 Continue medical management including aspirin and statin add beta-keira continue Plavix. Will titrate medication patient will be staying 1 more night for optimization of medications post STEMI, echocardiogram showed normal ejection fraction 60% On today's visit dated 06/03/2022 patient is doing fine from cardiovascular perspective, will reduce metoprolol to 12.5 twice daily due to bradycardia. Continue aspirin statin beta-keira and clopidogrel On today's visit dated 06/04/2022 patient continues to do fine from cardiovascular perspective we will continue low-dose metoprolol 12.5 mg twice a day due to bradycardia continue aspirin and statin and clopidogrel. Patient has to continue dual antiplatelet therapy for at least 1 year. She will be following up with cardiology with Dr. Romero in 3 months and Ms. Yane Gibson cardiology nurse practitioner in 10 days for (2) CKD (chronic kidney disease) stage 4, GFR 15-29 ml/min: Creatinine has slightly improved patient will be okay to discharge repeat BMP in 3 days. (3) Hyperlipidemia associated with type 2 diabetes mellitus: We will continue statin Plan Most likely patient will be discharged with follow-up Ms. Yane Gibson cardiology nurse practitioner in 10 days repeat BMP in 3 days. Attestations Medical Necessity Statement*: Primary cardiovascular perspective patient can be discharged home today Coding Level of Care Code Acute Code for Chg Fwd Diagnoses ST elevation myocardial infarction (STEMI) I21.3 CKD (chronic kidney disease) stage 4, GFR 15-29 ml/min N18.4 Hyperlipidemia associated with type 2 diabetes mellitus E11.69; E78.5
[2022-06-04 12:03] LABS: Glucose Point of Care 239 mg/dL (70-110)
[2022-06-04] MEDS: insulin lispro 100 unit/1 mL SUBCUT (13:23)
[2022-06-04 16:13] LABS: Alanine Aminotransferase 33 U/L (0-33); Albumin Level 3.2 g/dL (3.5-5.2); Alkaline Phosphatase 69 U/L (35-105); Anion Gap 14.9 (5-19); Aspartate Amino Transferase 58 U/L (0-32); Blood Urea Nitrogen 26 mg/dL (8-23); Carbon Dioxide 18 mmol/L (22-29); Chloride 105 mmol/L (98-107); Globulin 3.1 g/dL (1.3-4.6); Glucose 156 mg/dL (65-115); Osmolality Calculated 286 mOsm/kg (285-295); Potassium 3.9 mmol/L (3.5-5.1); Sodium 134 mmol/L (136-145); Total Bilirubin 0.3 mg/dL (0.15-1.2); Total Protein 6.3 g/dL (6.6-8.7)
--- NOTE | 2022-06-04 16:27 | P.DS_ITS ---
Discharge Providers Date of Admission: 06/01/22 15:44 Date of Discharge: June 04, 2022 Attending Provider at Admission: Geneva Bridges MD Attending Provider at Discharge: Scot Matthew MD Primary Care Provider: Davin Santos Diagnoses at Discharge Discharge Diagnosis (1) ST elevation myocardial infarction (STEMI): Status: Acute (2) CKD (chronic kidney disease) stage 4, GFR 15-29 ml/min: Status: Acute (3) Hyperlipidemia associated with type 2 diabetes mellitus: Status: Acute Reason for Visit Reason for Visit: n/v/chest pain Hospital Course Hospital Course 71yo F patient presented to ED with CP, SOB, diaphoresis. in ED STEMI was called and patient was taken to the laboratory mechanical technician receiving a DEL of the RCA by Dr. Nuñez on 06/01/21. Pt tolerated the procedure well. Was started on ASA and plavix. Initially pt was hypotensive following the procedure thus Norvasc, Hydralazine and metoprolol given in ED was held. It was found that her Synthroid with sub therapeutic with a TSH of 14, synthroid was increased to 88mcg. During the 2nd and 3rd hospital day pt was CP free; however, renal function slowly worsened secondary to contrast induced nephropathy with a creatinine max of 2.3 on 06/03. Pt was kept an additional night where creatinine improved to 1.9 and further to 1.8 12hrs later. At time of discharge patient has had resolution of admitting symptoms and feels much improved. she will go home on ASA and plavix x 1 year, Eliquis starter pack and to continue x 3 months, lipitor 40mg qd, Synthroid 88mcg, and metoprolol 12.5mg BID. Physical Exam Narrative: Lines: IV General: AOx3, no acute distress, well developed, well nourished, appears stated age psych: appropriate mood and affect. good judgment and insight. No suicidal or homicidal ideation. Head: atraumatic, normocephalic, no mass/lesions Eyes: conjunctiva clear w/o exudate or hemorrhage. non-icteric, EOM intact, PERRLA. no signs of nystagmus Nose: nasal mucosa pink, septum midline Oropharynx: good dentition, pink moist mucosa, non-deviated tongue, no buccal nodules/lesions. no pharyngeal exudate Neck: FROM, no lymphadenopathy Chest: atraumatic, symmetrical CVD: RRR, normal S1 and S2, 2/6SEM LSB, no R/G. 2+ pulse x 4 extremities, no JVD, no carotid bruit. Lungs: clear lung sounds in all garcia, no rhonchi, wheezing, rales. Abdomen: NT, ND, soft, NABS. No hepatosplenomegaly, Spine: no visible deformities, FROM, 5/5 strength, Extremities: FROM and 5/5 strength in BUE and BLE. Neuro: CNII-XII grossly intact, no sensory abnormalities. Skin:? no rash, vesicles, lesions. Discharge Data Studies Completed and Pending Completed Studies During Hospitalization Category Date Time Status XR chest 1V portable [id number] Stat Exams 06/01/22 14:57 Completed CV. 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 Laboratory Results WBC 15.1 10^3/uL (4.0-10.0) H 06/03/22 12:46 RBC 3.56 10^6/uL (4.1-5.3) L 06/03/22 12:46 Hgb 11.4 g/dL (11.5-15.3) L 06/03/22 12:46 Hct 35.2 % (37.0-47.0) L 06/03/22 12:46 MCV 98.9 fl (81-99) 06/03/22 12:46 MCH 32.0 pg (28.0-34.0) 06/03/22 12:46 MCHC 32.4 g/dL (30.0-36.0) 06/03/22 12:46 RDW 12.6 % (12.1-15.1) 06/03/22 12:46 Plt Count 306 10^3/cmm (130-400) 06/03/22 12:46 MPV 11.2 fL (7.4-10.4) H 06/03/22 12:46 Neut % (Auto) 76.2 % 06/03/22 12:46 Lymph % (Auto) 14.4 % 06/03/22 12:46 [place] % (Auto) 7.9 % 06/03/22 12:46 Eos % (Auto) 0.7 % 06/03/22 12:46 Baso % (Auto) 0.4 % 06/03/22 12:46 Neut # (Auto) 11.52 10^3/uL (1.8-7.7) H 06/03/22 12:46 Lymph # (Auto) 2.2 10^3/uL (0.8-4.8) 06/03/22 12:46 [place] # (Auto) 1.2 10^3/uL (0.2-0.9) H 06/03/22 12:46 Eos # (Auto) 0.1 10^3/uL (0.0-0.8) 06/03/22 12:46 Baso # (Auto) 0.1 10^3/uL (0.0-0.1) 06/03/22 12:46 Nucleated RBC % (auto) 0 % 06/03/22 12:46 Nucleated RBCs # 0.0 /100WBC 06/03/22 12:46 PT 12.90 SECONDS (12.1-14.9) 06/01/22 14:50 INR 0.94 (0.8-1.2) 06/01/22 14:50 Sodium 134 mmol/L (136-145) L 06/04/22 15:40 Potassium 3.9 mmol/L (3.5-5.1) 06/04/22 15:40 Chloride 105 mmol/L (98-107) 06/04/22 15:40 Carbon Dioxide 18 mmol/L (22-29) L 06/04/22 15:40 Anion Gap 14.9 (5-19) 06/04/22 15:40 BUN 26 mg/dL (8-23) H 06/04/22 15:40 Creatinine 1.8 mg/dL (0.5-0.9) H 06/04/22 15:40 GFR Calculation Not Reportable 06/04/22 15:40 Glucose 156 mg/dL (65-115) H 06/04/22 15:40 POC Glucose 239 mg/dL (70-110) H 06/04/22 11:08 Estimat Average Glucose 169 06/02/22 03:19 Hemoglobin A1c 7.5 % (4.0-6.0) H 06/02/22 03:19 Calculated Osmolality 286 mOsm/kg (285-295) 06/04/22 15:40 Calcium 8.0 mg/dL (8.5-10.5) L 06/04/22 15:40 Magnesium 1.8 mg/dL (1.7-2.3) 06/02/22 03:19 Total Bilirubin 0.3 mg/dL (0.15-1.2) 06/04/22 15:40 AST 58 U/L (0-32) H 06/04/22 15:40 ALT 33 U/L (0-33) 06/04/22 15:40 Alkaline Phosphatase 69 U/L (35-105) 06/04/22 15:40 Troponin T Baseline 14 ng/L (0-10) H 06/01/22 14:50 Troponin T 120 Minute 3042 ng/L (0-10) H 06/01/22 17:11 Delta Troponin T 3028 ABS# (0-10) H* 06/01/22 17:11 Troponin T Hi Sens 6Hr 5658 ng/L (0-10) H 06/01/22 20:30 Troponin T Hi Sens 6Hr Delta 5644 ng/L (0-12) H* 06/01/22 20:30 NT-Pro-B Natriuret Pep 289 pg/mL (0-125) H 06/01/22 14:50 Total Protein 6.3 g/dL (6.6-8.7) L 06/04/22 15:40 Albumin 3.2 g/dL (3.5-5.2) L 06/04/22 15:40 Globulin 3.1 g/dL (1.3-4.6) 06/04/22 15:40 Triglycerides 246 mg/dL (0-150) H 06/01/22 14:50 Cholesterol 270 mg/dL (0-200) H 06/01/22 14:50 LDL Cholesterol, Calc 158 mg/dL (50-129) H 06/01/22 14:50 HDL Cholesterol 63 mg/dL (60-100) 06/01/22 14:50 LDL/HDL Ratio 2.51 RATIO (0.00-3.22) 06/01/22 14:50 Cholesterol/HDL Ratio 4.29 mg/dL (0.0-4.40) 06/01/22 14:50 TSH 14.47 uIU/mL (0.27-4.20) H 06/01/22 14:50 Imaging Echo: Radiologist's impression: ?1-Normal left ventricular size, systolic function and wall thickness, with no regional wall motion abnormalities. Left ventricular ejection fraction is estimated at 60 %. Grade I/IV diastolic dysfunction (abnormal relaxation filling pattern), ?normal to mildly elevated filling pressures. ?2-Structurally normal mitral valve without significant stenosis or prolapse.? There is moderate mitral regurgitation.? ?3-There is no pericardial effusion. ?4-Right atrial pressure is around 5 mm of mercury. Vitals Last Vital Signs Temp 98.3 F 06/04/22 15:34 Pulse 69 06/04/22 15:34 Resp 18 06/04/22 15:34 BP 135/72 06/04/22 15:34 Pulse Ox 96 06/04/22 15:34 O2 Del Method 06/04/22 15:59 Discharge Plan Discharge Patient Disposition: Home Condition: Stable Prescriptions: New atorvastatin 40 mg Tablet 40 mg PO BEDTIME Qty: 30 0RF clopidogrel 75 mg Tablet 75 mg PO DAILY Qty: 90 0RF levothyroxine 88 mcg Tablet 88 mcg PO DAILY 30 Days Qty: 90 0RF metoprolol tartrate 25 mg Tablet 12.5 mg PO BID@0900,2100 Qty: 60 0RF Eliquis DVT-PE Treat 30D Start 5 mg (74 tabs) tablets,dose pack 5 mg PO BID Qty: 74 0RF Continued tizanidine 2 mg tablet 2 mg PO BID PRN (Reason: Pain) aspirin 81 mg Tablet,Chewable 81 mg PO DAILY Javid Lawson U-100 Insulin 100 unit/mL (3 mL) insulin pen 16 unit SUBCUT BEDTIME Discontinued levothyroxine 75 mcg tablet 75 mcg PO DAILY Discharge Orders: Discharge Order (Routine); Ordered 06/04/22 Ordered By: Scot Matthew Referrals: Davin Santos [Primary Care Provider] - ([facility] will contact you to schedule an follow-up appointmwnt in 4 to 7 days. If you haven't heard from them by Sunday afternoon. Please call ) Yane Gibson FNP [Nurse Practitioner] - ([facility] will contact you to schedule an follow-up appointment with Yane Gibson. If you haven't heard from them by Sunday afternoon. Please call ) Discharge Diet: Diabetic Discharge Activity: Resume usual activity Patient Instructions: Coronary Angioplasty (DC), Chronic Kidney Disease (DC), Hypothyroidism (DC), Hypotension (DC), Hypertension (DC), Opioid Safety, Post Angiogram Home Care Instructions Discharge Attestations Time Spent in Discharge Care*: less than 30 min Quality Metrics Clinical Quality Measures [ No reported AMI, CVA or VTE this stay] Coding Level of Care Code [address] elevation myocardial infarction (STEMI) I21.3 CKD (chronic kidney disease) stage 4, GFR 15-29 ml/min N18.4 Hyperlipidemia associated with type 2 diabetes mellitus E11.69; E78.5
[2022-06-04 16:54] LABS: Glucose Point of Care 116 mg/dL (70-110)
== END 2022-06-04 20:10 | disposition home or self-care (01) | DRG 247 ==
LOC: ER 14:54 → CCL 14:55 → ICU 16:42 → CSU 06-03 14:40
PROVIDERS: Internal Medicine; Internal Medicine Cardiovascular Disease; Admitting Provider Internal Medicine; Emergency Provider Emergency Medicine; PCP Family Medicine; Visit Provider Family Medicine
PROC: 027034Z Dilation of Coronary Artery, One Artery with Drug-eluting Intraluminal Device, Percutaneous Approach (ICD-10-PCS; principal; 2022-06-01 15:15)
PROC: 027034Z Dilation of Coronary Artery, One Artery with Drug-eluting Intraluminal Device, Percutaneous Approach (ICD-10-PCS; 2022-06-01 15:15)
DX: I21.11 ST elevation (STEMI) myocardial infarction involving right coronary artery (principal); N17.9 Acute kidney failure, unspecified; E11.22 Type 2 diabetes mellitus with diabetic chronic kidney disease; I12.9 Hypertensive chronic kidney disease with stage 1 through stage 4 chronic kidney disease, or unspecified chronic kidney disease; N18.9 Chronic kidney disease, unspecified; E11.65 Type 2 diabetes mellitus with hyperglycemia; I25.10 Atherosclerotic heart disease of native coronary artery without angina pectoris; N14.11 Contrast-induced nephropathy; T50.8X5A Adverse effect of diagnostic agents, initial encounter; E03.9 Hypothyroidism, unspecified; E78.5 Hyperlipidemia, unspecified; I95.9 Hypotension, unspecified; Z79.82 Long term (current) use of aspirin
CPT/HCPCS: 36415; 36416; 71045; 80053; 80061; 82962; 83036; 83735; 83880; 84443; 84484; 85025; 85347; 85610; 93005; 93306; 93454; 94664; 96365; 96367; 96372; 96374; 96376; 99152; 99153; 99285; C1725; C1769; C1874; C1887; C1894; C9113; C9600; J0461; J1644; J1815; J2250; J2405; J3010; J3490; J7030; J7120; Q9967

== ENCOUNTER → 2022-06-15 09:51 | Outpatient (BNVA) | payer MEDICARE, MEDICAID, SELFPAY | PROVIDERS: PCP Family Medicine; Visit Provider Specialist | DX: I25.10 Atherosclerotic heart disease of native coronary artery without angina pectoris (principal); Z95.828 Presence of other vascular implants and grafts; E78.5 Hyperlipidemia, unspecified; I12.9 Hypertensive chronic kidney disease with stage 1 through stage 4 chronic kidney disease, or unspecified chronic kidney disease; N18.9 Chronic kidney disease, unspecified; N17.9 Acute kidney failure, unspecified; E11.22 Type 2 diabetes mellitus with diabetic chronic kidney disease; Z79.01 Long term (current) use of anticoagulants; Z79.82 Long term (current) use of aspirin; Z79.4 Long term (current) use of insulin | CPT/HCPCS: 36415; 80048; 99214 ==

== ENCOUNTER 2022-07-11 22:39 | Emergency (ER) | payer MEDICARE, MEDICAID, SELFPAY ==
[2022-07-11 22:48] VITALS: BP 184/81; PULSE 98; RESP 22; TEMP 36.9; O2SAT 98; BMI 23.6
[2022-07-11] MEDS: oxymetazoline 0.05% Nasal Spray 15 mL 2 SPRAY NOSTRIL-B (22:55)
--- NOTE | 2022-07-11 22:58 | W.ED.EPISTAX ---
HPI - Epistaxis General: Chief complaint: Epistaxis Stated complaint: nose bleed Time Seen by Provider: 07/11/22 22:40 Source: patient Mode of arrival: ambulatory Limitations: no limitations History of Present Illness: Is [id number] female who states she has had a nosebleed out of her left nare over the last hour she nosebleed states this 1 does not stop she is on aspirin and Plavix also has history of high blood pressure her blood pressure is slightly high here as well. She denies any injuries denies any pain. Associated symptoms: Deny fever(s) or vomiting Review of Systems Const: Denies: fever(s), chills, body aches or change in appetite Eyes: Denies: eye discomfort ENMT: Reports: epistaxis; Denies: throat pain or dental pain Card: Denies: chest pain Resp: Denies: dyspnea GI: Denies: abdominal pain, nausea, vomiting or diarrhea Musc: Denies: neck pain or back pain Skin/Breast: Denies: rash PFSH ED PFSH: Medical History Diabetes Hypertension Surgical History No pertinent past surgical history No pertinent past surgical history Family History Denies family history of CAD (coronary artery disease) Social History Smoking and tobacco status: never smoked Physical Exam Const: COMMON NORMALS: no acute distress, patient oriented x3 and healthy appearing HENMT: COMMON NORMALS: normocephalic and atraumatic HEAD & SCALP: normocephalic and atraumatic OTHER: Active epistaxis from left nare Eye: COMMON NORMALS: conjunctivae normal CONJUNCTIVA: Yes conjunctivae normal Neck/C-Spine: COMMON NORMALS: full ROM and supple Chest: COMMONS NORMALS: normal inspection of the chest Resp: COMMON NORMALS: normal respiratory effort Cardio: COMMON NORMALS: regular rate, regular rhythm and No murmurs present (Cardio) RATE: regular rate RHYTHM: regular rhythm GI: INSPECTION: Yes normal to inspection Extremity: COMMON NORMALS: normal to inspection and full ROM Neuro: COMMON NORMALS: patient oriented x3, moves all extremities and no focal motor deficits Psych: COMMON NORMALS: mental status grossly normal, Normal thought process present and cooperative THOUGHT PROCESS: Normal thought process present Skin: COMMON NORMALS: no rashes or lesions noted and no wounds GENERAL SKIN EXAM: no rashes or lesions noted Course Vital Signs: Vital signs: Vital Signs Temperature 98.5 F 07/11/22 22:48 Pulse Rate 88 07/11/22 23:15 Respiratory Rate 22 H 07/11/22 22:48 Blood Pressure 158/78 07/11/22 23:36 Pulse Oximetry 94 07/11/22 23:15 MDM - Epistaxis Medical Decision Making Patient presents here with nosebleed that is stopped here with Afrin and direct pressure she is stable for discharge she is to follow-up with PCP and return if worsening.. Medical Records I reviewed the patient's medical records. Discharge Plan Discharge Patient Disposition: Home Clinical Impression: Epistaxis Condition: Stable Prescriptions: No Action glipizide 5 mg tablet 5 mg PO DAILY atorvastatin 40 mg tablet See Rx Instructions .ROUTE .COMPLEX Qty: 90 0RF Dose Instruction: TAKE 1 TABLET BY MOUTH AT BEDTIME Rx Instructions: TAKE 1 TABLET BY MOUTH AT BEDTIME aspirin 81 mg Tablet,Chewable 81 mg PO DAILY Basaglar KwikPen U-100 Insulin 100 unit/mL (3 mL) insulin pen 16 unit SUBCUT BEDTIME clopidogrel 75 mg Tablet 75 mg PO DAILY Qty: 90 0RF metoprolol tartrate 25 mg Tablet 12.5 mg PO BID@0900,2100 Qty: 60 0RF Discharge Orders: Discharge ED (Routine); Ordered 07/12/22 Ordered By: Rei Card Referrals: Davin Santos [Primary Care Provider] - 1-3 days Discharge Diet: Advance as tolerated Discharge Activity: Resume usual activity Patient Instructions: Nosebleed (ED) Coding Level of Care Code ED Technical Service Specialist for Michael Alvarez
[2022-07-11 23:00] VITALS: BP 179/93; PULSE 87; O2SAT 92
[2022-07-11] MEDS: hyDRALAzine 20 mg/mL INJ 1 mL 10 MG IM (23:02)
[2022-07-11 23:15] VITALS: BP 172/85; PULSE 88; O2SAT 94
[2022-07-11] MEDS: metoprolol tartrate 25 mg Tablet PO (23:27)
[2022-07-11 23:36] VITALS: BP 158/78; BP 192/107
[2022-07-12 00:08] VITALS: BP 137/76; PULSE 91; O2SAT 97
== END 2022-07-12 00:12 | disposition home or self-care (01) ==
PROVIDERS: Emergency Provider Emergency Medicine; PCP Family Medicine
DX: R04.0 Epistaxis (principal); Z79.84 Long term (current) use of oral hypoglycemic drugs; Z79.82 Long term (current) use of aspirin; Z79.02 Long term (current) use of antithrombotics/antiplatelets; Z79.4 Long term (current) use of insulin; E11.9 Type 2 diabetes mellitus without complications; I10 Essential (primary) hypertension
CPT/HCPCS: 96372; 99284; J0360

== ENCOUNTER → 2022-09-14 12:46 | Outpatient (BNVA) | payer MEDICARE, MEDICAID, SELFPAY | PROVIDERS: PCP Family Medicine; Visit Provider Internal Medicine | DX: I25.10 Atherosclerotic heart disease of native coronary artery without angina pectoris (principal); E78.5 Hyperlipidemia, unspecified; I12.9 Hypertensive chronic kidney disease with stage 1 through stage 4 chronic kidney disease, or unspecified chronic kidney disease; N18.9 Chronic kidney disease, unspecified; N17.9 Acute kidney failure, unspecified; E11.22 Type 2 diabetes mellitus with diabetic chronic kidney disease; Z79.4 Long term (current) use of insulin | CPT/HCPCS: 99214 ==

== ENCOUNTER 2022-12-05 12:17 | Emergency (ER) | payer MEDICARE, MEDICAID, SELFPAY ==
--- NOTE | 2022-12-05 12:19 | XRR_ITS ---
PROCEDURE INFORMATION: Exam: XR Left Shoulder Exam date and time: 12/05/2022 12:41 PM Age: 72 years old Clinical indication: Pain; Shoulder; Left.No history of trauma or recent surgery is provided. TECHNIQUE: Imaging protocol: Radiologic exam of the left shoulder. 3image(s) are provided. Views: 2 or more views. COMPARISON: 1. CR XR chest 1V portable [id number] 06/01/2022 5:08 PM. No previous shoulder radiograph is currently available. 2. CR XR chest 2V* [id number] 06/04/2016 1:51 PM FINDINGS: Bones/joints: No interval displaced fracture is appreciated.There is slightly decreased bone mineralization overall. There is some chronic appearing hypertrophic degeneration about the acromioclavicular junction similar overall. There is some slight subacromial narrowing and spurring demonstrated. There is some calcification suggestive of calcific tendinitis related change about the superolateral aspect of the humeral head. Glenohumeral alignment appears maintained on the transscapular view although there is some subtly subluxed appearance on the frontal and oblique view although may be positional related. The appearance is similar overall compared to the previous chest radiograph. Pleural space: No interval pneumothorax or lobar type consolidation is appreciated. Heart/Mediastinum: The cardiomediastinal silhouette is upper normal in size.This can be seen with central averaging as well as yadi enlargement.No cardiac decompensation is appreciated. There appears to be some coronary stent material. Soft tissues: No radiopaque foreign body or subcutaneous emphysema is appreciated. There is some skin fold averaging. Other findings: There is some overlying clothing artifact. The patient is slightly rotated. No other significant interval changes are appreciated. XR/XR shoulder LT min 2V* [id number] IMPRESSION: 1. The cardiomediastinal silhouette is upper normal in size.This can be seen with central averaging as well as yadi enlargement. Consider two-view chest. 2. There are chronic appearing degenerative changes of shoulder suggestive of chronic rotator cuff disease and calcific tendinitis. 3. Glenohumeral alignment appears maintained on the transscapular view although appears subtly subluxed on the oblique view which may also be positional related. If there is persistent pain or limited range of motion then consider CT of the shoulder.
[2022-12-05 12:31] VITALS: BMI 27.9
[2022-12-05 12:34] VITALS: BP 195/107; PULSE 75; RESP 16; TEMP 36.7; O2SAT 99
--- NOTE | 2022-12-05 12:39 | ECG_ITS ---
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 Measurements Intervals [place] Rate: 79 P: 43 NE: 148 QRS: -12 QRSD: 88 T: 21 QT: 369 QTc: 424 Interpretive Statements SINUS RHYTHM MINIMAL ST DEPRESSION [0.025+ mV ST DEPRESSION] Compared to ECG 06/01/2022 20:57:43 ST (T wave) deviation now present Sinus arrhythmia no longer present Myocardial infarct finding no longer present Electronically Signed On 12-05-2022 16:35:30 CDT by Huseyin Romero M.D. [id number]
--- NOTE | 2022-12-05 12:47 | ED_ITS ---
HPI - Extremity Problem General: Chief complaint: Extremity Problem,Nontraumatic Stated complaint: left shoulder/arm pain Time Seen by Provider: 12/05/22 12:31 Source: patient Mode of arrival: ambulatory Limitations: no limitations History of Present Illness: 71-year-old female states been having some left shoulder and arm pain over the last 2 to 3 days states it is tender to touch and worse with movement she denies any specific injuries. She denies any chest pain denies any shortness of breath. Associated symptoms: Deny chest pain, fever(s) or rash Review of Systems Const: Denies: fever(s) or chills ENMT: Denies: throat pain or dental pain Card: Denies: chest pain Resp: Denies: dyspnea GI: Denies: abdominal pain, nausea, vomiting or diarrhea Musc: Reports: extremity pain; Denies: neck pain or back pain Skin/Breast: Denies: rash Neuro: Denies: headache(s) PFSH ED PFSH: Medical History Diabetes Hypertension Surgical History No pertinent past surgical history No pertinent past surgical history Family History Denies family history of CAD (coronary artery disease) Social History Smoking and tobacco status: never smoked Physical Exam Const: COMMON NORMALS: no acute distress HENMT: COMMON NORMALS: normocephalic and atraumatic HEAD & SCALP: normocephalic and atraumatic Eye: COMMON NORMALS: conjunctivae normal CONJUNCTIVA: Yes conjunctivae normal Chest: COMMONS NORMALS: normal inspection of the chest Resp: COMMON NORMALS: normal respiratory effort Cardio: COMMON NORMALS: regular rate and regular rhythm RATE: regular rate RHYTHM: regular rhythm Extremity: NARRATIVE EXTREMITY EXAM: Some slight tenderness over the left shoulder she does have some pain to range of motion no obvious deformities Course Vital Signs: Vital signs: Vital Signs Temperature 98.1 F 12/05/22 12:34 Pulse Rate 87 12/05/22 13:04 Respiratory Rate 18 12/05/22 13:04 Blood Pressure 187/105 12/05/22 13:04 Pulse Oximetry 98 12/05/22 13:04 Oxygen Delivery Me thod Room Air 12/05/22 13:04 MDM - Extremity (Nontraumatic) Medical Decision Making Patient presents here with left shoulder pains likely muscular in nature x-ray here shows no fracture patient stable for discharge she is to follow-up with PCP and return if worsening Medical Records I reviewed the patient's medical records. Lab Data I reviewed the patient's lab results. XR interpretation done by ED provider, pending radiology final review ED provider radiology interpretation(s): xr shoulder no fx EKG Data EKG 1: I personally reviewed and interpreted this EKG as follows: EKG interpretation date: 12/05/22 EKG interpretation time: 12:39 Interpretation: nsr hr [address] or t wave abnormalities qrs 88 qtc 403 Discharge Plan Discharge Patient Disposition: Home Clinical Impression: Left shoulder pain Condition: Stable Prescriptions: New Naprosyn 500 mg tablet 500 mg PO BID PRN (Reason: pain) Qty: 20 0RF No Action levothyroxine 88 mcg tablet 88 mcg PO DAILY glipizide 5 mg tablet 5 mg PO DAILY atorvastatin 40 mg tablet See Rx Instructions .ROUTE .COMPLEX Qty: 90 0RF Dose Instruction: TAKE 1 TABLET BY MOUTH AT BEDTIME Rx Instructions: TAKE 1 TABLET BY MOUTH AT BEDTIME aspirin 81 mg Tablet,Chewable 81 mg PO DAILY Bashiraglar ÁngelikPen U-100 Insulin 100 unit/mL (3 mL) insulin pen 16 unit SUBCUT BEDTIME clopidogrel 75 mg Tablet 75 mg PO DAILY Qty: 90 0RF metoprolol tartrate 25 mg Tablet 12.5 mg PO BID@0900,2100 Qty: 60 0RF Discharge Orders: Discharge ED (Routine); Ordered 12/05/22 Ordered By: Rei Card Referrals: Davin Santos [Primary Care Provider] - Discharge Diet: Advance as tolerated Discharge Activity: Resume usual activity Patient Instructions: Shoulder Pain (ED) Coding Level of Care Code ED Quality Control Director for Michael Alvarez
[2022-12-05 13:04] VITALS: BP 187/105; PULSE 87; RESP 18; O2SAT 98
[2022-12-05] MEDS: naproxen 500 mg Tablet PO (13:06)
== END 2022-12-05 13:07 | disposition home or self-care (01) ==
PROVIDERS: Emergency Provider Emergency Medicine; PCP Family Medicine
DX: M25.512 Pain in left shoulder (principal); E11.9 Type 2 diabetes mellitus without complications; I10 Essential (primary) hypertension
CPT/HCPCS: 73030; 93005; 99284

== ENCOUNTER → 2023-03-22 12:42 | Outpatient (BNVA) | payer MEDICAID, SELFPAY | PROVIDERS: PCP Family Medicine; Visit Provider Internal Medicine | DX: I25.10 Atherosclerotic heart disease of native coronary artery without angina pectoris (principal); I10 Essential (primary) hypertension; E78.5 Hyperlipidemia, unspecified; N17.9 Acute kidney failure, unspecified | CPT/HCPCS: 99214 ==

== ENCOUNTER → 2023-11-29 15:00 | Outpatient (BNVA) | payer MEDICARE, MEDICAID, SELFPAY | PROVIDERS: PCP Family Medicine; Visit Provider Internal Medicine | DX: I25.10 Atherosclerotic heart disease of native coronary artery without angina pectoris (principal); I10 Essential (primary) hypertension; E78.5 Hyperlipidemia, unspecified; N17.9 Acute kidney failure, unspecified | CPT/HCPCS: 99214 ==

== ENCOUNTER → 2024-06-13 09:56 | Outpatient (BNVA) | payer MEDICARE, MEDICAID, SELFPAY | PROVIDERS: PCP Family Medicine; Visit Provider Internal Medicine | DX: I25.10 Atherosclerotic heart disease of native coronary artery without angina pectoris (principal); I10 Essential (primary) hypertension; E78.5 Hyperlipidemia, unspecified; N17.9 Acute kidney failure, unspecified | CPT/HCPCS: 99214 ==

== ENCOUNTER → 2025-03-05 15:06 | Outpatient (BNVA) | payer MEDICARE, MEDICAID, SELFPAY | PROVIDERS: PCP Family Medicine; Visit Provider Internal Medicine | DX: I25.10 Atherosclerotic heart disease of native coronary artery without angina pectoris (principal); I10 Essential (primary) hypertension; E78.5 Hyperlipidemia, unspecified; N17.9 Acute kidney failure, unspecified | CPT/HCPCS: 99214 ==